=== PATIENT | male | born 1960 | race Caucasian/White ===

== ENCOUNTER → 2016-07-30 | Outpatient (CLI) | payer OTHER ==
--- NOTE | 2016-08-01 23:55 | US ---
EXAMINATION TYPE: US MSK Right Shoulder DATE OF EXAM: 07/30/2016 9:12 AM COMPARISON: None available. CLINICAL HISTORY: 56-year-old male Rt Shoulder Pain M25.511. , popped shoulder stopping a ball . Persistent pain, slight improvement in ROM. Outside radiographs commented on arthritis per the sono grapher. No physical therapy or injections. Can only abduct to shoulder level. TECHNIQUE: Multiple sonographic images of the right shoulder were obtained. FINDINGS: There is mild to moderate fluid seen along the long head biceps tendon at the level of the bicipital groove. Long head biceps tendon appears grossly intact. There is preservation of the subscapularis tendon volume with mild heterogeneity suggesting mild tend inosis. Mild degenerative joint space narrowing with marginal spurring and capsular hypertrophy at the acromi oclavicular joint. The anterior supraspinatus tendon is heterogeneous and irregular with suggestion of a deep tear of th e far anterior fibers contacting the rotator cuff interval measuring up to 9 mm long and 8 mm AP dime nsion with fluid delaminating medially to the myotendinous junction. Abnormal echogenicity appears to contact both bursal and articular surfaces on the short axis views. Views of the posterior shoulder show normal-appearing posterior labrum without significant joint flui d in the posterior recess of the glenohumeral joint. Spinal glenoid groove appears clear. There is preserved muscle bulk of the supraspinatus and infraspinatus muscle bellies. No significant fluid distention of the subacromial/subdeltoid bursa. IMPRESSION: 1. High-grade partial, possible nondisplaced full-thickness tear of the far anterior supraspinatus te ndon contacting the rotator cuff interval measuring 9 mm long and 8 mm AP dimension. Some fluid is se en delaminating medially to the myotendinous junction. 2. No rotator cuff muscle atrophy. 3. Mild AC joint osteoarthrosis and mild long head biceps tenosynovitis.
== END | disposition home or self-care (01) ==
LOC: RADUSMAIN 07:53
PROVIDERS: ATTEND Orthopaedic Surgery
DX: M19.011 Primary osteoarthritis, right shoulder (principal); M75.21 Bicipital tendinitis, right shoulder

== ENCOUNTER 2018-12-04 19:15 | Observation (INO) | payer BC ==
--- NOTE | 2018-12-04 19:46 | ED ---
General Adult HPI - General Chief complaint: Arrhythmia/Palpitations Stated complaint: High Heart Rate Time Seen by Provider: 12/04/18 19:15 Source: patient, RN notes reviewed Mode of arrival: ambulatory Limitations: no limitations - History of Present Illness Initial comments: This is a 58-year-old male who presents emergency Department complaining of palpitations. Patient states he had a history of atrial fibrillation over 20 years ago. Patient states hasn't really had any episodes since. Patient states today he had an episode earlier and eventually subsided once he relaxes at all. Patient states he got up again it started again. Patient states it has been ongoing until he reached the emergency department at which point time he said the stretcher relaxed and eventually converted himself. Patient denies any chest pain difficulty breathing or shortness of breath per patient states he is lightheaded when these episodes occur. Patient denies any recent trips or travel. Patient denies any calf pain. Patient denies any swelling to the legs. Patient denies any recent fever chills or cough. Patient denies any recent surgery. - Related Data Home Medications Medication Instructions Recorded Confirmed Aspirin EC [Ecotrin Low Dose] 81 mg PO HS 12/04/18 12/04/18 Atorvastatin Calcium [Lipitor] 10 mg PO HS 12/04/18 12/04/18 Cyanocobalamin [Vitamin B-12] 500 mcg PO DAILY 12/04/18 12/04/18 Lansoprazole [Prevacid] 30 mg PO DAILY 12/04/18 12/04/18 Losartan [Cozaar] 25 mg PO HS 12/04/18 12/04/18 Multivitamins, Thera [Multivitamin 1 tab PO DAILY 12/04/18 12/04/18 (formulary)] Ubidecarenone [Co Q-10] 100 mg PO DAILY 12/04/18 12/04/18 Allergies Allergy/AdvReac Type Severity Reaction Status Date / Time No Known Allergies Allergy Verified 12/04/18 19:46 Review of Systems ROS Statement: Those systems with pertinent positive or pertinent negative responses have been documented in the HPI. ROS Other: All systems not noted in ROS Statement are negative. Past Medical History Past Medical History: Atrial Fibrillation, GERD/Reflux, Hyperlipidemia, Hypertension History of Any Multi-Drug Resistant Organisms: None Reported Past Surgical History: Ablation, Hernia Repair, Orthopedic Surgery Additional Past Surgical History / Comment(s): shoulder Past Psychological History: No Psychological Hx Reported Smoking Status: Never smoker Past Alcohol Use History: None Reported Past Drug Use History: None Reported General Exam - General Exam Comments Initial Comments: GENERAL: Patient is well-developed and well-nourished. Patient is nontoxic and well- hydrated and is in mild distress. ENT: Neck is soft and supple. No significant lymphadenopathy is noted. Oropharynx is clear. Moist mucous membranes. Neck has full range of motion without eliciting any pain. EYES: The sclera were anicteric and conjunctiva were pink and moist. Extraocular movements were intact and pupils were equal round and reactive to light. Eyelids were unremarkable. PULMONARY: Unlabored respirations. Good breath sounds bilaterally. No audible rales rhonchi or wheezing was noted. CARDIOVASCULAR: There is a regular rate and rhythm without any murmurs gallops or rubs. ABDOMEN: Soft and nontender with normal bowel sounds. No palpable organomegaly was noted. There is no palpable pulsatile mass. SKIN: Skin is clear with no lesions or rashes and otherwise unremarkable. NEUROLOGIC: Patient is alert and oriented x3. Cranial nerves II through XII are grossly intact. Motor and sensory are also intact. Normal speech, volume and content. Symmetrical smile. MUSCULOSKELETAL: Normal extremities with adequate strength and full range of motion. No lower extremity swelling or edema. No calf tenderness. LYMPHATICS: No significant lymphadenopathy is noted PSYCHIATRIC: Normal psychiatric evaluation. 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 Patient's EKG shows no ST segment elevation or depression or T wave abnormalities are noted. Was patient relaxed his heart rate started to slow and then he converted to a normal sinus rhythm. Second EKG was showed a normal sinus rhythm at 85 bpm TX interval is on a 74 QRS is 86 Q-T intervals 366 QTC is 435 per patient's EKG shows no ST segment elevation or depression no T-wave abnormalities are noted. Patient currently has no symptoms. I started the patient on heparin because the paroxysmal atrial fibrillation. I spoke with Dr. Church agreed to admit the patient admitted the patient wrote admitting orders I consult cardiology. I continue the heparin on the floor. - Lab Data Result diagrams: 12/04/18 19:45 Lab Results 12/04/18 12/04/18 12/04/18 Range/Units 19:45 19:45 19:45 PT 10.3 (9.0-12.0) sec INR 1.0 (<1.2) APTT 23.4 (22.0-30.0) sec Sodium 139 (137-145) mmol/L Potassium 3.8 (3.5-5.1) mmol/L Chloride 107 (98-107) mmol/L Carbon Dioxide 24 (22-30) mmol/L Anion Gap 8 mmol/L BUN 29 H (9-20) mg/dL Creatinine 1.13 (0.66-1.25) mg/dL Est GFR (CKD-EPI)AfAm 82 (>60 ml/min/1.73 sqM) Est GFR (CKD-EPI)NonAf 71 (>60 ml/min/1.73 sqM) Glucose 92 (74-99) mg/dL Calcium 9.5 (8.4-10.2) mg/dL Magnesium 1.9 (1.6-2.3) mg/dL Total Bilirubin 0.6 (0.2-1.3) mg/dL AST 37 (17-59) U/L ALT 34 (21-72) U/L Alkaline Phosphatase 75 (38-126) U/L Troponin I <0.012 (0.000-0.034) ng/mL Total Protein 7.3 (6.3-8.2) g/dL Albumin 4.5 (3.5-5.0) g/dL Disposition Clinical Impression: Paroxysmal atrial fibrillation Disposition: ADMITTED IP TO THIS HOSP Referrals: Jerzy Mars MD [Primary Care Provider] - 1-2 days Time of Disposition: 20:32
[2018-12-04] MEDS ORDERED: HEPARIN SODIUM,PORCINE 5,000 UNIT/ML 1 ML VIAL IV ONE (19:57)
[2018-12-04] MEDS ORDERED: HEPARIN SOD,PORK IN 0.45% NACL 25,000 UNIT in 0.45% NACL 1 250ML.BAG IV SCH (20:00)
[2018-12-04 20:11] LABS: Basophils % (A) 0 %; Eosinophils # (A) 0.1 k/uL (0-0.7); Eosinophils % (A) 2 %; HCT 48.2 % (39.0-53.0); HGB 15.9 gm/dL (13.0-17.5); Lymphocytes # (A) 2.4 k/uL (1.0-4.8); Lymphocytes % (A) 32 %; MCH 31.6 pg (25.0-35.0); MCHC 32.9 g/dL (31.0-37.0); MCV 95.9 fL (80.0-100.0); Mean Platelet Volume 6.6; Monocytes # (A) 0.6 k/uL (0-1.0); Monocytes % (A) 7 %; Neutrophils # (A) 4.2 k/uL (1.3-7.7); Neutrophils % (A) 56 %; Platelet Count 244 k/uL (150-450); RBC 5.03 m/uL (4.30-5.90); RDW 12.2 % (11.5-15.5); WBC 7.5 k/uL (3.8-10.6)
--- NOTE | 2018-12-04 20:14 | XR ---
EXAMINATION TYPE: XR chest 2V DATE OF EXAM: 12/04/2018 COMPARISON: NONE HISTORY: Chest pain TECHNIQUE: Frontal and lateral views of the chest are obtained. FINDINGS: Heart and mediastinum are normal. Lungs are clear. Diaphragm is normal. There are chest le ads. There is a left axillary pacemaker. IMPRESSION: No active cardiopulmonary disease. Normal heart.
[2018-12-04 20:20] LABS: Albumin 4.5 g/dL (3.5-5.0); Calcium 9.5 mg/dL (8.4-10.2); Magnesium 1.9 mg/dL (1.6-2.3); Potassium 3.8 mmol/L (3.5-5.1); Total Bilirubin 0.6 mg/dL (0.2-1.3); Total Protein 7.3 g/dL (6.3-8.2)
[2018-12-04 20:27] LABS: Partial Thromboplastin Time 23.4 sec (22.0-30.0); Prothrombin Time 10.3 sec (9.0-12.0)
[2018-12-04] MEDS ORDERED: SODIUM CHLORIDE 0.9% 1,000 ML IV ONE (20:33)
[2018-12-04] MEDS ORDERED: ATORVASTATIN 10 MG TAB PO SCH (21:00)
[2018-12-04] MEDS: DILTIAZEM ORAL 60 MG TAB PO SCH (22:52)
[2018-12-04] MEDS ORDERED: LOSARTAN 25 MG TAB PO STA ×2 (23:11→23:37)
[2018-12-05] MEDS ORDERED: PANTOPRAZOLE 40 MG TABLET PO SCH (08:00)
--- NOTE | 2018-12-05 09:35 | P.HPIM ---
History of Present Illness H&P Date: 12/05/18 Chief Complaint: Palpitations This is a 58-year-old male patient of Dr. Mars and Dr. Karimi with past history of gastroesophageal reflux disease, hypertension, hyperlipidemia. Patient also has history of proximal atrial fibrillation status post ablation of the [facility] in 1996 and subsequent pacemaker placement but no battery change. Pacemaker was on demand setting at 35 and eventually was shot on. Patient states he has had some episodes of palpitations that he feels in his Jus's apple that may last about 10 seconds but yesterday was a first-time that he had any episodes last. He was coaching softball and episode of Lantus 25-30 seconds which went away and then a second episode that lasts for about an hour did result in the emergency center. He denies palpitations, patient also has lightheadedness. He denies any shortness of breath. No history of strokes, numbness or tingling, visual changes. No history of NH. Also no long history and no cancer history. The patient last saw Dr. Mars and Dr. Karimi approximately one year ago. relates that he has not been feeling well for some time. He states his blood pressures usually under control with losartan. Patient presented to [facility] emergency center for evaluation. Initially was found to have a heart rate of 150 and then patient converted and repeat heart rates were in the 50s and 60s, sinus rhythm. EKG was a sinus rhythm at a rate of 85. CBC was within normal limits. Electrolytes and liver function tests within normal limits. BUN 29 and creatinine 1.13. Troponin negative. Chest x-ray shows no acute cardiopulmonary disease. Normal heart. The patient was started on heparin drip and Cardizem drip and has remained in sinus rhythm with T-wave inversion in lead 3.. Patient refused to take Cardizem oral as he states that he has trouble with medications and has reactions to many in the past. Patient was placed in the cardiac stepdown unit and cardiology consult requested. Patient has evaluated the patient and recommended starting eliquis 5 mg daily and flecainide 75 mg twice daily with follow-up with Dr. Kairmi in one week. All other home medications will remain the same. Patient will be discharged home today and states table condition. Review of Systems All systems: negative Constitutional: Denies chills, Denies fatigue, Denies fever, Denies lethargy, De nies malaise, Denies poor appetite (Aortitis), Denies weakness, Denies weight loss Eyes: denies blurred vision, denies pain Ears, nose, mouth and throat: Denies headache, Denies sore throat, Denies vertigo Cardiovascular: Reports irregular heart beat, Reports lightheadedness, Reports palpitations, Denies chest pain, Denies decreased exercise tolerance, Denies dyspnea on exertion, Denies edema, Denies leg edema, Denies shortness of breath, Denies syncope Respiratory: Denies cough, Denies cough with sputum, Denies dyspnea, Denies home oxygen, Denies wheezing Gastrointestinal: Denies abdominal pain, Denies diarrhea, Denies loss of appetite, Denies nausea, Denies vomiting Genitourinary: Denies dysuria, Denies urinary retention Musculoskeletal: Denies frequent falls, Denies gait dysfunction, Denies muscle weakness, Denies myalgias Integumentary: Denies pruritus, Denies rash, Denies wounds Neurological: Denies aphasia, Denies change in mentation, Denies change in spe ech, Denies numbness, Denies seizures, Denies weakness Psychiatric: Denies anxiety, Denies depression Endocrine: Denies fatigue, Denies weight change Past Medical History Past Medical History: Atrial Fibrillation, GERD/Reflux, Hyperlipidemia, Hypertension History of Any Multi-Drug Resistant Organisms: None Reported Past Surgical History: Ablation, Hernia Repair, Orthopedic Surgery Additional Past Surgical History / Comment(s): shoulder, Pacemaker Past Psychological History: No Psychological Hx Reported Smoking Status: Never smoker Past Alcohol Use History: None Reported Additional Past Alcohol Use History / Comment(s): The patient is a lifelong nonsmoker. No illicit drug use. He drinks alcohol rarely. Patient was at home with his . Past Drug Use History: None Reported - Past Family History Father Family Medical History: Hypertension Additional Family Medical History / Comment(s): Father is alive at age 90 with previous history of coronary artery disease with 3 vessel CABG done in his early 60s and valve replacement done at age 82. Mother Additional Family Medical History / Comment(s): Mother at age 73 from metastatic skin cancer. She also had history of diabetes. Brother(s) Additional Family Medical History / Comment(s): Patient has one brother with history of hypertension. Patient has one sister with history of hypertension and diabetes. Patient has 4 children with no major medical problems. Medications and Allergies Home Medications Medication Instructions Recorded Confirmed Type Aspirin EC [Ecotrin Low Dose] 81 mg PO HS 12/04/18 12/04/18 History Atorvastatin Calcium [Lipitor] 10 mg PO HS 12/04/18 12/04/18 History Cyanocobalamin [Vitamin B-12] 500 mcg PO DAILY 12/04/18 12/04/18 History Lansoprazole [Prevacid] 30 mg PO DAILY 12/04/18 12/04/18 History Losartan [Cozaar] 25 mg PO HS 12/04/18 12/04/18 History Multivitamins, Thera [Multivitamin 1 tab PO DAILY 12/04/18 12/04/18 History (formulary)] Ubidecarenone [Co Q-10] 100 mg PO DAILY 12/04/18 12/04/18 History Apixaban [Eliquis] 5 mg PO BID #60 tab 12/05/18 Rx Flecainide [Tambocor] 75 mg PO BID #90 tablet 12/05/18 Rx Allergies Allergy/AdvReac Type Severity Reaction Status Date / Time No Known Allergies Allergy Verified 12/04/18 19:46 Physical Exam Vitals: Vital Signs Temp Pulse Pulse Resp BP BP Pulse Ox 12/05/18 04:00 55 L 17 12/05/18 01:26 97.8 F 67 16 117/64 98 12/05/18 01:08 67 16 111/69 98 12/05/18 00:00 97.8 F 58 L 17 110/62 97 12/04/18 23:00 61 18 118/79 99 12/04/18 22:20 63 19 119/76 12/04/18 21:00 97.9 F 56 L 17 109/67 98 12/04/18 19:20 156 H 12/04/18 19:16 98.1 F 61 15 111/68 97 Intake and Output 12/04/18 12/05/18 12/05/18 22:59 06:59 14:59 Intake Total 82.708 Balance 82.708 Intake: Intake, IV Titration 82.708 Amount Heparin Sod,Pork in 0.45% 82.708 NaCl 25,000 unit In 0.45 % NaCl 1 250ml.bag @ 8.65 UNITS/KG/HR 10.005 mls/ hr IV .Q24H [facility] Rx#: [id number] Other: Voiding Method Urinal # Voids 1 1 Weight 115.666 kg 112.3 kg Gen: This is a 58-year-old male. He is resting in bed and appears to be comfortable and in no acute distress. Patient's is at bedside. HEENT: Head is atraumatic, normocephalic. Pupils equal, round. Sclerae is anicteric. NECK: Supple. No JVD. No lymphadenopathy. No thyromegaly. LUNGS: Clear to auscultation. No wheezes or rhonchi. No intercostal retractions. HEART: Regular rate and rhythm. No murmur. ABDOMEN: Soft. Bowel sounds are present. No masses. No tenderness. EXTREMITIES: No pedal edema. No calf tenderness. Dorsalis pedis +2 bilaterally. NEUROLOGICAL: Patient is awake, alert and oriented x3. Cranial nerves 2 through 12 are grossly intact. Results CBC & Chem 7: 12/04/18 19:45 12/04/18 19:45 Labs: Abnormal Lab Results - Last 24 Hours (Table) 12/04/18 12/05/18 Range/Units 19:45 03:23 APTT 35.7 H (22.0-30.0) sec BUN 29 H (9-20) mg/dL Thrombosis Risk Factor Assmnt - DVT/VTE Prophylaxis DVT/VTE Prophylaxis: Pharmacologic Prophylaxis ordered - Choose All That Apply Each Factor Represents 1 point: Age 41-60 years, Obesity (BMI >25) Other Risk Factors: No Thrombosis Risk Factor Assessment Total Risk Factor Score: 2 Thrombosis Risk Factor Assessment Level: Low Risk Assessment and Plan Plan: 1. A. fib with RVR, converted to sinus rhythm. Cardiology consult. 2. History of atrial fibrillation status post ablation in 1996 and pacemaker placementnot active with no battery change. 3. Hypertension. 4. Hyperlipidemia. 5. Gastroesophageal reflux disease. Patient placed as an observation status. Discharge plan: return home Impression and plan of care have been directed as dictated by the signing physician. Mary Lou Sosa nurse practitioner acting as scribe for signing kaleb lucas.
[2018-12-05] MEDS: DILTIAZEM ORAL 60 MG TAB PO SCH ×2 (10:56→12:37)
[2018-12-05 12:14] VITALS: TEMP 97.8
[2018-12-05] MEDS ORDERED: FLECAINIDE 50 MG TAB PO SCH (14:45)
[2018-12-05 15:58] VITALS: BP 119/69; PULSE 64; RESP 18
--- NOTE | 2018-12-05 16:43 | P.CRDCN ---
History of Present Illness Consult date: 12/05/18 Requesting physician: Maria D Boudreaux Consult reason: atrial fibrillation Chief complaint: Palpitations History of present illness: This is a 58-year-old gentleman who follows regularly with Dr. Karimi in the office. He has a known history of chills fibrillation in the past, for which he underwent an ablation procedure approximately 20 years ago. He presented to the hospital on this occasion with symptoms of palpitations and feeling his heart racing fast. His original EKG in the emergency room showed atrial fibrillation with rapid ventricular response and subsequently patient c onverted to normal sinus rhythm. His current home medications included: Acute 10, multivitamin, Cozaar 25 mg daily, Prevacid 30 mg daily, vitamin B12, Lipitor 10 mg daily, Ecotrin 81 mg daily. We will discontinue the Ecotrin, start the patient on flecainide 75 mg by mouth twice a day if the LV function is normal, and also start the patient on Eliquis 5 mg one tablet by mouth twice a day. He should be able to be discharged home today from our perspective, we'll recommend that he follow-up with Dr. Karimi in the office next week Past Medical History Past Medical History: Atrial Fibrillation, GERD/Reflux, Hyperlipidemia, Hypertension History of Any Multi-Drug Resistant Organisms: None Reported Past Surgical History: Ablation, Hernia Repair, Orthopedic Surgery Additional Past Surgical History / Comment(s): shoulder, Pacemaker Past Psychological History: No Psychological Hx Reported Smoking Status: Never smoker Past Alcohol Use History: None Reported Additional Past Alcohol Use History / Comment(s): The patient is a lifelong nonsmoker. No illicit drug use. He drinks alcohol rarely. Patient was at home with his . Past Drug Use History: None Reported - Past Family History Father Family Medical History: Hypertension Additional Family Medical History / Comment(s): Father is alive at age 90 with previous history of coronary artery disease with 3 vessel CABG done in his early 60s and valve replacement done at age 82. Mother Additional Family Medical History / Comment(s): Mother at age 73 from metastatic skin cancer. She also had history of diabetes. Brother(s) Additional Family Medical History / Comment(s): Patient has one brother with history of hypertension. Patient has one sister with history of hypertension and diabetes. Patient has 4 children with no major medical problems. Medications and Allergies Home Medications Medication Instructions Recorded Confirmed Type Aspirin EC [Ecotrin Low Dose] 81 mg PO HS 12/04/18 12/04/18 History Atorvastatin Calcium [Lipitor] 10 mg PO HS 12/04/18 12/04/18 History Cyanocobalamin [Vitamin B-12] 500 mcg PO DAILY 12/04/18 12/04/18 History Lansoprazole [Prevacid] 30 mg PO DAILY 12/04/18 12/04/18 History Losartan [Cozaar] 25 mg PO HS 12/04/18 12/04/18 History Multivitamins, Thera [Multivitamin 1 tab PO DAILY 12/04/18 12/04/18 History (formulary)] Ubidecarenone [Co Q-10] 100 mg PO DAILY 12/04/18 12/04/18 History Apixaban [Eliquis] 5 mg PO BID #60 tab 12/05/18 Rx Flecainide [Tambocor] 75 mg PO BID #90 tablet 12/05/18 Rx Allergies Allergy/AdvReac Type Severity Reaction Status Date / Time No Known Allergies Allergy Verified 12/04/18 19:46 Physical Exam Vitals: Vital Signs Temp Pulse Pulse Resp BP BP Pulse Ox 12/05/18 12:00 97.8 F 58 L 16 126/79 95 12/05/18 08:00 97.4 F L 57 L 18 112/72 95 12/05/18 04:00 55 L 17 12/05/18 01:26 97.8 F 67 16 117/64 98 12/05/18 01:08 67 16 111/69 98 12/05/18 00:00 97.8 F 58 L 17 110/62 97 12/04/18 23:00 61 18 118/79 99 12/04/18 22:20 63 19 119/76 12/04/18 21:00 97.9 F 56 L 17 109/67 98 12/04/18 19:20 156 H 12/04/18 19:16 98.1 F 61 15 111/68 97 Intake and Output 12/04/18 12/05/18 12/05/18 22:59 06:59 14:59 Intake Total 82.708 342.193 Balance 82.708 342.193 Intake: Intake, IV Titration 82.708 102.193 Amount Heparin Sod,Pork in 0.45% 82.708 102.193 NaCl 25,000 unit In 0.45 % NaCl 1 250ml.bag @ 8.65 UNITS/KG/HR 10.005 mls/ hr IV .Q24H [facility] Rx#: [id number] Oral 240 Other: Voiding Method Urinal Toilet # Voids 1 1 Weight 115.666 kg 112.3 kg PHYSICAL EXAMINATION: GENERAL: 58-year-old gentleman in no acute distress at the time of my examination HEENT: Head is atraumatic, normocephalic. Pupils equal, round. Sclera anicteric. Conjunctiva are clear. Mucous membranes of the mouth are moist. Neck is supple. There is no elevated jugular venous pressure. No carotid bruit is heard. HEART EXAMINATION: Heart S1, S2 normal. No murmur or gallop heard. CHEST EXAMINATION: Lungs are clear to auscultation and precussion. No chest wall tenderness is noted on palpation or with deep breathing. ABDOMEN: Soft, nontender. Bowel sounds are heard. No organomegaly noted. EXTREMITIES: 2+ peripheral pulses with no evidence of peripheral edema and no calf tenderness noted. NEUROLOGIC patient is awake, alert and oriented 3 . . Results 12/04/18 19:45 12/04/18 19:45 Cardiac Enzymes 12/04/18 12/04/18 Range/Units 19:45 19:45 AST 37 (17-59) U/L Troponin I <0.012 (0.000-0.034) ng/mL Coagulation 12/04/18 12/05/18 12/05/18 Range/Units 19:45 03:23 11:38 PT 10.3 (9.0-12.0) sec APTT 23.4 35.7 H 46.3 H (22.0-30.0) sec CBC 12/04/18 Range/Units 19:45 WBC 7.5 (3.8-10.6) k/uL RBC 5.03 (4.30-5.90) m/uL Hgb 15.9 (13.0-17.5) gm/dL Hct 48.2 (39.0-53.0) % Plt Count 244 (150-450) k/uL Comprehensive Metabolic Panel 12/04/18 Range/Units 19:45 Sodium 139 (137-145) mmol/L Potassium 3.8 (3.5-5.1) mmol/L Chloride 107 (98-107) mmol/L Carbon Dioxide 24 (22-30) mmol/L BUN 29 H (9-20) mg/dL Creatinine 1.13 (0.66-1.25) mg/dL Glucose 92 (74-99) mg/dL Calcium 9.5 (8.4-10.2) mg/dL AST 37 (17-59) U/L ALT 34 (21-72) U/L Alkaline Phosphatase 75 (38-126) U/L Total Protein 7.3 (6.3-8.2) g/dL Albumin 4.5 (3.5-5.0) g/dL Current Medications Generic Name Dose Route Start Last Admin Trade Name Freq PRN Reason Stop Dose Admin Atorvastatin Calcium 10 mg 12/04/18 21:00 12/04/18 23:51 Lipitor PO 10 mg HS MERY Administration Diltiazem HCl 60 mg 12/04/18 22:00 12/05/18 10:56 Cardizem Oral PO Not Given QID MERY Heparin Sodium/Sodium Chloride 250 mls @ 10.005 mls/hr 12/04/18 20:00 12/05/18 12:22 25,000 unit/ Sodium Chloride IV 13.6 units/kg/hr .Q24H [facility] 15.731 mls/hr Titration Protocol 8.65 UNITS/KG/HR Pantoprazole Sodium 40 mg 12/05/18 08:00 12/05/18 08:05 Protonix PO 40 mg [id number] MERY Administration Intake and Output 12/04/18 12/05/18 12/05/18 22:59 06:59 14:59 Intake Total 82.708 342.193 Balance 82.708 342.193 Intake: Intake, IV Titration 82.708 102.193 Amount Heparin Sod,Pork in 0.45% 82.708 102.193 NaCl 25,000 unit In 0.45 % NaCl 1 250ml.bag @ 8.65 UNITS/KG/HR 10.005 mls/ hr IV .Q24H [facility] Rx#: [id number] Oral 240 Other: Voiding Method Urinal Toilet # Voids 1 1 Weight 115.666 kg 112.3 kg 12/04/18 19:45 12/04/18 19:45 EKG Interpretations (text) EKG on admission showed atrial fibrillation with rapid ventricular response, subsequent EKG shows normal sinus rhythm with no acute changes. Assessment and Plan Plan: Assessment and plan #1 paroxysmal atrial fibrillation #2 hypertension #3 hyperlipidemia Plan We will start the patient on flecainide 75 mg one tablet by mouth twice a day along with Eliquis 5 mg one tablet by mouth twice a day. Discontinue the aspirin he was taking at home and continue with the rest of his medications. Follow-up appointment with Dr. Karimi in the office one week post discharge. DNP note has been reviewed, I agree with a documented findings and plan of care. Patient was seen and examined.
[2018-12-05] MEDS ORDERED: APIXABAN 5 MG TAB PO SCH (21:00)
--- NOTE | 2018-12-06 16:17 | ECHOF ---
Referral Reason:LVF MEASUREMENTS -------- HEIGHT: 188.0 cm WEIGHT: 112.0 kg BP: RVIDd: 4.4 cm (< 3.3) IVSd: 1.6 cm (0.6 - 1.1) LVIDd: 4.3 cm (3.9 - 5.3) LVPWd: 1.4 cm (0.6 - 1.1) IVSs: 2.1 cm LVIDs: 2.8 cm LVPWs: 1.7 cm LAESV Index (A-L): 17.65 ml/m Ao Diam: 3.9 cm (2.0 - 3.7) AV Cusp: 2.1 cm (1.5 - 2.6) LA Diam: 3.9 cm (2.7 - 3.8) MV EXCURSION: 18.655 mm (> 18.000) MV EF SLOPE: 101 mm/s (70 - 150) EPSS: 0.3 cm MV E [place]: 0.59 m/s MV DecT: 193 ms MV A [place]: 0.45 m/s MV E/A Ratio: 1.32 AR PHT: 947 ms RAP: 5.00 mmHg RVSP: 27.57 mmHg FINDINGS -------- Sinus rhythm. This was a technically adequate study. The left ventricular size is normal. There is moderate concentric left ventricular hypertrophy. O verall left ventricular systolic function is normal with, an EF between 55 - 60 %. The right ventricle is severely enlarged. The left atrial size is normal. Normal LA size by volume 22+/-6 ml/m2. The right atrial size is normal. Interatrial and interventricular septum intact. The aortic valve is trileaflet and appears structurally normal. Mild mitral regurgitation is present. Mild tricuspid regurgitation present. There is no evidence of pulmonary hypertension. The right v entricular systolic pressure, as measured by Doppler, is 27.57mmHg. Trace/mild (physiologic) pulmonic regurgitation. The aortic root size is normal. IVC Not well visulized. There is no pericardial effusion. CONCLUSIONS -------- 1. Sinus rhythm. 2. This was a technically adequate study. 3. The left ventricular size is normal. 4. There is moderate concentric left ventricular hypertrophy. 5. Overall left ventricular systolic function is normal with, an EF between 55 - 60 %. 6. The right ventricle is severely enlarged. 7. The left atrial size is normal. 8. Normal LA size by volume 22+/-6 ml/m2. 9. The right atrial size is normal. 10. Interatrial and interventricular septum intact. 11. The aortic valve is trileaflet and appears structurally normal. 12. Mild mitral regurgitation is present. 13. Mild tricuspid regurgitation present. 14. There is no evidence of pulmonary hypertension. 15. The right ventricular systolic pressure, as measured by Doppler, is 27.57mmHg. 16. Trace/mild (physiologic) pulmonic regurgitation. 17. The aortic root size is normal. 18. IVC Not well visulized. 19. There is no pericardial effusion. [employer] MECHANIC: Marilia Davalos RDCS
== END 2018-12-05 17:26 | disposition home or self-care (01) ==
LOC: EC 19:15 → 3SCARD 20:33
PROVIDERS: ADMIT Internal Medicine; ATTEND Internal Medicine
DX: I48.0 Paroxysmal atrial fibrillation (principal); K21.9 Gastro-esophageal reflux disease without esophagitis; I10 Essential (primary) hypertension; E78.5 Hyperlipidemia, unspecified; Z95.0 Presence of cardiac pacemaker; Z79.01 Long term (current) use of anticoagulants; Z79.82 Long term (current) use of aspirin; Z79.899 Other long term (current) drug therapy; Z80.8 Family history of malignant neoplasm of other organs or systems; Z83.3 Family history of diabetes mellitus; Z82.49 Family history of ischemic heart disease and other diseases of the circulatory system
CPT/HCPCS: 96366 ×3; 96365; 99285; 36415; 93005; 93306; 80053; 84443; 83735; 84484; 85025; 85610; 85730 ×2; 71046; G0378 ×2; J1644 ×2

== ENCOUNTER → 2019-08-16 | Outpatient (CLI) | payer BC ==
--- NOTE | 2019-08-16 22:30 | CONS ---
CONSULTATION DATE OF SERVICE: 08/16/2019 This patient is a 59-year-old gentleman who has been evaluated in the sleep center for possible obstructive sleep apnea-hypopnea syndrome. HISTORY OF PRESENT ILLNESS/SLEEP-WAKE EVALUATION: Patient's usual sleep schedule on weekdays is from 8:30 p.m. until 5 a.m. and on weekends from around 9 p.m. until 5 a.m. No problems with falling asleep, although he has a TV set in the bedroom. He usually sleeps on the side position with his . He grinds his teeth. He has episodes of heartburn and wakes up from sleep two times with nocturia. In the morning he wakes up tired. [place] Sleepiness Scale is 9. PAST MEDICAL HISTORY: Positive for episodes of paroxysmal atrial fibrillation for around 20 years, hypertension, hyperlipidemia. PAST SURGICAL HISTORY: Cardiac ablation, pacemaker insertion, cholecystectomy, right shoulder surgery for rotator cuff problems, hernia repair. MEDICATIONS: Lansoprazole, flecainide, Eliquis, losartan, atorvastatin. SOCIAL HISTORY: Negative for smoking. Alcohol consumption rarely. FAMILY HISTORY: Hypertension, heart problems, hyperlipidemia, acid reflux, diabetes. REVIEW OF SYSTEMS: Awakenings from sleep, feeling tired in the morning after he wakes up. PHYSICAL EXAMINATION: GENERAL: A pleasant gentleman without distress. VITAL SIGNS: BP 127/84, HR 72, RR 14, height 6 feet 2 inches, weight 265 pounds. Body mass index 34. Temperature 98.2, oxygen saturation at room air 96%. HEENT: PERRLA, EOMI. Evaluation of oropharynx showed tongue protrudes midline. Mallampati II to III. Nose asymmetric. NECK: Supple. No JVD. Thyroid is not palpable. Wide neck; 17-1/4 inches in circumference. LUNGS: Clear to percussion and to auscultation. Good air exchange. No wheezing or rhonchi. HEART: S1, S2 regular. No murmurs, gallops or rubs. ABDOMEN: Soft. No tenderness. EXTREMITIES: No clubbing or cyanosis. [employer]: Awake, alert, and oriented X3. Cranial nerves 2 to 7 intact. There is no fasciculation or atrophy. noted. No focal deficits observed. IMPRESSION: 1. Awakenings from sleep with nocturia several times at night, wide neck at 17-1/4 inches in circumference, nose asymmetric, some restriction of nasal breathing, feeling tiredness and sleepiness in the morning after awakening; possible obstructive sleep apnea-hypopnea syndrome. 2. History of paroxysmal atrial fibrillation for about 20 years. 3. Hypertension. 4. Hyperlipidemia. 5. Status post permanent pacemaker insertion. 6. Status post cardiac ablation. 7. Status post cholecystectomy. 8. Status post right shoulder surgery for rotator cuff problems. 9. Status post hernia repair. 10.Asymmetric nose; possibly nasal septum deviation. PLAN: 1. Home sleep apnea test to check patient's breathing during sleep. 2. CPAP/BiPAP titration if sleep study confirms obstructive sleep apnea-hypopnea syndrome. 3. Preferable position during sleep on the side. 4. No driving if patient feels any sleepiness. 5. I will see patient for follow up visit to explain results of testing and following plan. Thank you very much for referring this patient for consultation. Sincerely, Zev Agustin MD, PhD, FAASM Diplomat of [place] [employer] [place] [employer] Supervisor of [facility] [place] MMODL / IJN: [id number] /
== END | disposition home or self-care (01) ==
LOC: SLEEP 15:53
PROVIDERS: ATTEND Internal Medicine
DX: G47.33 Obstructive sleep apnea (adult) (pediatric) (principal); I10 Essential (primary) hypertension; E78.5 Hyperlipidemia, unspecified; Z86.79 Personal history of other diseases of the circulatory system; Z90.49 Acquired absence of other specified parts of digestive tract; Z95.0 Presence of cardiac pacemaker; Z98.890 Other specified postprocedural states; R35.1 Nocturia; Z79.01 Long term (current) use of anticoagulants; Z79.899 Other long term (current) drug therapy
CPT/HCPCS: 99211

== ENCOUNTER → 2020-01-23 | Outpatient (CLI) | payer BC ==
[2020-01-23 11:14] LABS: MCH 32.4 pg (25.0-35.0); MCV 101.1 fL (80.0-100.0); Mean Platelet Volume 7.3; Platelet Count 225 k/uL (150-450); RBC 4.94 m/uL (4.30-5.90); RDW 12.3 % (11.5-15.5)
[2020-01-23 16:45] LABS: African American GFR (CKD) 93.7 (60.0-200.0); Anion Gap 5.4 mmol/L (4.00-12.00); Carbon Dioxide 25.6 mmol/L (21.6-31.8); Chol/HDL Ratio 2.88; LDL Cholesterol,Calculated 63.8 mg/dL (0.0-131.0); Non-African American GFR(CKD) 80.9 (60.0-200.0); Potassium 4.4 mmol/L (3.5-5.5); VLDL Calculation 13.2 mg/dL (5.00-40.00)
== END | disposition home or self-care (01) ==
LOC: LABWHC1 10:08
PROVIDERS: ATTEND Physician Assistant
DX: I10 Essential (primary) hypertension (principal); E78.5 Hyperlipidemia, unspecified; I48.0 Paroxysmal atrial fibrillation
CPT/HCPCS: 36415; 80048; 80061; 84443; 85027

== ENCOUNTER 2022-09-28 13:07 | Day surgery (SDC) | payer BC ==
[2022-09-23 15:56] VITALS: BMI 33.3
[~2022-09-28 13:07] MED LIST: DEXAMETHASONE SOD PHOSPHATE 4 MG/ML 1 ML VIAL IV ONE; HYDROmorphone 0.5 MG/0.5 ML SYRINGE IVP PRN; ONDANSETRON 4 MG/2 ML VIAL IVP ONE; SODIUM CHLORIDE 0.9% 1,000 ML IV SCH
[2022-09-28] MEDS ORDERED: HEPARIN SODIUM,PORCINE 10,000 UNIT/ML 1 ML VIAL ONE (14:52)
[2022-09-28] MEDS ORDERED: LIDOCAINE 2% INJ 20 MG/ML (2 ML VIAL) ONE (14:52)
[2022-09-28] MEDS ORDERED: SUCCINYLCHOLINE CHLORIDE 200 MG/10 ML VIAL IV ONE (14:52)
[2022-09-28] MEDS ORDERED: ISOPROTERENOL 250 MCG/1.25 ML SYR IV ONE (14:52)
[2022-09-28] MEDS ORDERED: MIDAZOLAM 2 MG/2 ML VIAL ONE (14:52)
[2022-09-28] MEDS ORDERED: fentaNYL (PF) 50 MCG/ML 2 ML AMP ONE (14:52)
[2022-09-28] MEDS ORDERED: PROPOFOL 10 MG/ML 20 ML VIAL IV ONE (14:52)
[2022-09-28] MEDS ORDERED: PHENYLEPHRINE-0.9% NACL SYG 1,000 MCG/10 ML SYRINGE ONE (14:52)
[2022-09-28] MEDS ORDERED: HEPARIN SODIUM,PORCINE 5,000 UNIT/ML 1 ML VIAL ONE (14:52)
[2022-09-28] MEDS ORDERED: LIDOCAINE 1% INJ 10MG/ML (30 ML VIAL-PF) SQ ONE (15:32)
[2022-09-28] MEDS ORDERED: HEPARIN SOD,PORK IN 0.45% NACL 25,000 UNIT in 0.45% NACL 1 250ML.BAG IV ONE (15:50)
[2022-09-28] MEDS ORDERED: IOPAMIDOL-370 100ML BTL INJ ONE (17:26)
[2022-09-28] MEDS ORDERED: LACTATED RINGERS 1,000 ML IV ONE (17:46)
--- NOTE | 2022-09-28 17:53 | P.HPCAR ---
History of Present Illness This is Dr. Karimi dictating an H/P on this patient The patient was interviewed and examined IMPRESSION / ASSESSMENT: Persistent atrial fibrillation of recent onset Failed flecainide, previously treated for paroxysmal A. fib, now persistent despite flecainide Normal TSH History of atrial flutter status post ablation many years back Sick Sinus Syndrome PLAN: A. fib ablation Continue anticoagulation HPI Patient completed palpitations. He also has mild tiredness and fatigue No syncope or loss of consciousness No chest discomfort or angina ROS: No fever chills or rigors, no cough, phlegm or expectoration, no nausea, vomiting or diarrhea, no hematuria, dysuria, no musculoskeletal complaints, no strokes or seizures, no skin lesions. EXAMINATION: 126/80 mmHg Afebrile pulse rate in the 60s Breath sounds are clear no rhonchi no crackles Heart sounds are normal but irregular no murmurs Abdomen soft nontender Extended is warm no edema REVIEW OF LABS, ECG & MEDICAL DATA Losartan, metoprolol, Lipitor, ELIQUIS Physical Exam Vitals: Vital Signs Temp Pulse Resp BP Pulse Ox 09/28/22 13:30 98 F 62 18 126/80 99 Intake and Output 09/28/22 09/28/22 09/28/22 06:59 14:59 22:59 Intake Total 1000 28 Balance 1000 28 Intake: IV 1000 28 Other: Weight 118.4 kg Past Medical History Past Medical History: Atrial Fibrillation, GERD/Reflux, Hyperlipidemia, Hypertension Additional Past Medical History / Comment(s): Pacemaker - non functioning, states "battery ran out and Dr karimi said I didn't need it and just left it there." History of Any Multi-Drug Resistant Organisms: None Reported Past Surgical History: Cardiac Ablation, Hernia Repair, Orthopedic Surgery, Pacemaker Additional Past Surgical History / Comment(s): Shoulder surgery (does not recall which side), cardiac ablation X2, right knee surgery X2. Past Anesthesia/Blood Transfusion Reactions: No Reported Reaction Type of Cardiac Device: Unknown Device Placement Date:: 1996 Past Psychological History: No Psychological Hx Reported Smoking Status: Never smoker Past Alcohol Use History: Rare Additional Past Alcohol Use History / Comment(s): No alcohol use in years. Past Drug Use History: None Reported - Past Family History Father Family Medical History: Coronary Artery Disease (CAD), Hypertension Additional Family Medical History / Comment(s): Father is alive at age 90 with previous history of 3 vessel CABG done in his early 60s and valve replacement done at age 82. Mother Family Medical History: Cancer, Diabetes Mellitus Additional Family Medical History / Comment(s): Mother at age 73 from metastatic skin cancer. Brother(s) Additional Family Medical History / Comment(s): Patient has one brother with history of hypertension. Patient has one sister with history of hypertension and diabetes. Patient has 4 children with no major medical problems. Physical Examination Vital Signs Temp Pulse Resp BP Pulse Ox 09/28/22 13:30 98 F 62 18 126/80 99 Intake and Output 09/28/22 09/28/22 09/28/22 06:59 14:59 22:59 Intake Total 1000 28 Balance 1000 28 Intake: IV 1000 28 Other: Weight 118.4 kg Results Current Medications Generic Name Dose Route Start Last Admin Trade Name Freq PRN Reason Stop Dose Admin Hydromorphone HCl 0.5 mg 09/28/22 07:00 Hydromorphone 0.5 Mg/0.5 Ml Syringe IVP 09/28/22 23:00 Q5M PRN Phase 1 or 2 - Pain Control Sodium Chloride 1,000 mls @ 50 mls/hr 09/28/22 06:02 09/28/22 13:31 Saline 0.9% IV 10/28/22 06:03 1,000 mls .Q20H MERY Administration Lactated Ringer's 1,000 mls @ 20 mls/hr 09/28/22 06:02 Lactated Ringers IV 10/28/22 06:03 .Q24H MERY Intake and Output 09/28/22 09/28/22 09/28/22 06:59 14:59 22:59 Intake Total 1000 28 Balance 1000 28 Intake: IV 1000 28 Other: Weight 118.4 kg Patient Weight 09/29/22 06:59 Weight 118.4 kg
--- NOTE | 2022-09-28 18:03 | P.EPPROC ---
- EP Procedure Note Electrophysiology Procedure Note: PROCEDURE A. fib ablation DIAGNOSIS Atrial fibrillation, symptomatic, refractory to therapy, persistent, of recent onset RESULT No left atrial appendage mass seen on intracardiac echo, thickened pericardium around the left ventricle Calcification of the wall of the left main and LAD/left circumflex without obvious occlusion on intracardiac echo Successful A. fib ablation/pulmonary vein isolation of all veins using cryo- ablation. Termination of atrial fibrillation during RSPV ablation Active left atrial septum, successful left atrial septal ablation Left atrial roof line performed with contiguous lesions performed Alinia band of ablated tissue from the right superior to the left superior pulmonary veins Complete entrance block in all 4 veins confirmed No evidence for phrenic nerve injury Esophageal deflection YES / NO PROCEDURE DETAILS Written informed consent prior to procedure. Patient brought to the EP lab. General anesthesia given. Heparin administered. A city maintained above 300 seconds Both groins prepped and draped per protocol and venous sheaths placed. Es ophagus intubated, circa catheter for temperature monitoring an endoscope for possible esophageal deflection. Phrenic nerve monitoring performed. Esophageal temperature monitoring performed. Esophageal deflection performed if circa catheter overlapping with the balloon or circa temperature less than 27.5C Intracardiac echocardiography performed. Pericardium evaluated. Left atrial appendage evaluated. Left atrium evaluated along with pulmonary veins Transseptal catheterization performed under fluoroscopic guidance and intracardiac echo guidance Cryoablation sheath exchanged, balloon catheter along with achieve catheter placed in the left atrium. Pulmonary veins isolated in the following sequence: Left superior pulmonary vein followed by left inferior pulmonary vein, followed by right inferior pulmonary vein and lastly right superior pulmonary vein. Phrenic nerve stimulation along with capture thresholds within the SVC and right superior pulmonary vein to identify the phrenic nerve proximity to the cryo- balloon. Pulmonary veins isolated and confirmed with entrance and exit block. Phrenic nerve integrity confirmed at the end of the procedure Termination of atrial fibrillation during RSP V Ablation of the left atrial roof performed with sequential lesions from the left superior to the right superior pulmonary veins. Ablation of the electrograms confirmed After right superior and inferior pulmonary vein ablation, a very active julio césar/septum was noted in between the 2 veins and this area was then successfully ablated. Ablation of the left atrial septum performed with cannulation of the superior branch of the right inferior or the inferior branch of the right superior vein to achieve ablation of the posterior septum of the left atrium. Ablation of electrograms confirmed Diagnostic catheters for the high right atrium, His bundle, coronary sinus placed. LA and RA pressures recorded RA pressure: 14/02/11 LA pressure: 15/02/11 Diagnostic EP study with coronary sinus pacing and recording Baseline measurements: Sinus cycle length 990 ms, RI interval 170 ms, QRS 101 ms and QT 420 ms AH 84 and HV 37 ms Parahisian pacing revealed john response VA [place]enckebach block greater than 550 ms Sinus node recovery times at 600, 500 and, 400 were 1194, 1241 and 1201. Corresponding carotid sinus recovery times normal AV node Wenckebach block from the high right atrium was 320 ms AV node Wenckebach block on Isuprel was 230 ms from the coronary sinus Venous sheaths were removed and hemostasis assured with a closure device. Patient extubated and transferred to recovery Increase procedural time During ablation of the right-sided veins, phrenic nerve stimulation was noted within the right-sided veins. The cryo balloon in close proximity to this location, during standard technique for occlusion of the vein, posing a risk to the phrenic nerve. Therefore the balloon was repositioned around the antrum in a roving fashion to isolate the vein at an extra ostial level to minimize the risk of phrenic nerve injury. The right-sided veins were completely and successfully isolated with this extra effort. In addition this is a large vein and the 28th millimeter balloon but still have to be positioned deep in order to achieve occlusion. Termination of atrial fibrillation occurred during right superior pulmonary vein ablation Multiple attempts needed for successful cryoablation isolation of the pulmonary vein, especially the right superior pulmonary vein which is quite large resulting in deep positioned in the balloon and very cold temperatures. Cryo lesions were limited to multiple two-minute lesions for the right superior PROCEDURES PERFORMED Diagnostic EP study CS pacing and recording Left and right transseptal catheterization Catheter the mapping of the tachycardia Intracardiac echocardiography Pulmonary vein isolation with transseptal and comprehensive EPS, [id number] Extended procedure duration Drug infusion, +[id number] Left atrial roof line, +[id number] Linear ablation, left atrium septum, +[id number]
[2022-09-28] MEDS ORDERED: ACETAMINOPHEN TAB 325 MG TAB PO PRN (18:05)
[2022-09-28] MEDS ORDERED: ACETAMINOPHEN IV (For NPO) 1,000 MG in EMPTY BAG 1 BAG IVPB ONE (19:00)
[2022-09-28] MEDS: LACTATED RINGERS 1,000 ML IV SCH ×2 (19:42→20:10)
[2022-09-28] MEDS: APIXABAN 5 MG TAB PO SCH (20:08)
[2022-09-28] MEDS ORDERED: LOSARTAN 25 MG TAB PO SCH (21:00)
[2022-09-29 05:19] VITALS: PULSE 70
[2022-09-29 06:39] LABS: Basophils % (A) 0 %; Eosinophils # (A) 0.1 k/uL (0-0.7); Eosinophils % (A) 1 %; HCT 48.2 % (39.0-53.0); HGB 16.4 gm/dL (13.0-17.5); Lymphocytes # (A) 1.6 k/uL (1.0-4.8); Lymphocytes % (A) 19 %; MCH 33.1 pg (25.0-35.0); MCHC 34.1 g/dL (31.0-37.0); MCV 97.3 fL (80.0-100.0); Mean Platelet Volume 7.5; Monocytes # (A) 0.7 k/uL (0-1.0); Monocytes % (A) 8 %; Neutrophils # (A) 6.1 k/uL (1.3-7.7); Neutrophils % (A) 69 %; Platelet Count 194 k/uL (150-450); RBC 4.95 m/uL (4.30-5.90); RDW 12.7 % (11.5-15.5); WBC 8.8 k/uL (3.8-10.6)
[2022-09-29 06:58] VITALS: BP 103/70; RESP 16; TEMP 98.1
[2022-09-29 07:04] LABS: African American GFR (CKD) >90 (>60 ml/min/1.73 sqM); Anion Gap 8 mmol/L; Blood Urea Nitrogen 21 mg/dL (9-20); Calcium 8.6 mg/dL (8.4-10.2); Carbon Dioxide 23 mmol/L (22-30); Chloride 108 mmol/L (98-107); Glucose 75 mg/dL (74-99); Non-African American GFR(CKD) 85 (>60 ml/min/1.73 sqM); Potassium 4.3 mmol/L (3.5-5.1); Sodium 139 mmol/L (137-145)
[2022-09-29] MEDS ORDERED: ATORVASTATIN 20 MG TAB PO SCH (09:00)
[2022-09-29] MEDS ORDERED: PANTOPRAZOLE 40 MG TABLET PO SCH (09:00)
--- NOTE | 2022-09-29 09:27 | P.DS ---
Providers Attending physician: Jatinder Karimi Primary care physician: Jerzy [facility] Course: The patient is a 62-year-old male who is currently admitted after successful pulmonary vein isolation for persistent atrial fibrillation. The patient underwent pulmonary vein isolation with left atrial roof line. No atrial fibrillation induced the end of his procedure. The patient states he did well overnight. He does report having a sore throat. No chest pain or chest pressure. No orthopnea or chest pain when lying flat. He states he has been up ambulating to the restroom. GENERAL: Well-appearing, well-nourished and in no acute distress. NECK: Supple without JVD or thyromegaly. LUNGS: Breath sounds clear to auscultation bilaterally. Respiration equal and unlabored. No wheezes, rales or rhonchi. HEART: Regular rate and rhythm without murmurs, rubs or gallops. S1 and S2 hear d. EXTREMITIES: Normal range of motion, no edema. No clubbing or cyanosis. Peripheral pulses intact and strong. Bruising noted in bilateral groin sites. Mild. No hematoma. TELEMETRY: Sinus rhythm overnight IMPRESSION: Persistent atrial fibrillation refractory to antiarrhythmic therapy Status post pulmonary vein isolation A. fib terminated at the left superior pulmonary vein PLAN: Continue current medication regimen including anticoagulation Follow-up in office in 1-2 weeks I am dictating on behalf of Dr Jatinder Karimi's history/physical and assessment/plan. Plan - Discharge Summary Discharge Rx Participant: Yes New Discharge Prescriptions: Discontinued Flecainide [Tambocor] 50 mg PO BID Metoprolol Succinate [Toprol XL] 50 mg PO DAILY No Action Losartan [Cozaar] 25 mg PO HS Lansoprazole [Prevacid] 30 mg PO DAILY Apixaban [Eliquis] 5 mg PO BID #60 tab Atorvastatin [Lipitor] 20 mg PO DAILY Discharge Medication List Lansoprazole [Prevacid] 30 mg PO DAILY 12/04/18 [History] Losartan [Cozaar] 25 mg PO HS 12/04/18 [History] Apixaban [Eliquis] 5 mg PO BID #60 tab 12/05/18 [Rx] Atorvastatin [Lipitor] 20 mg PO DAILY 09/23/22 [History] Follow up Appointment(s)/Referral(s): Jatinder Karimi MD [STAFF PHYSICIAN] - 2 Weeks (Follow-up with Dr. Karimi/Alice Perales in 1-2 weeks Start flecainide and metoprolol Continue ELIQUIS and other cardiac medications) Activity/Diet/Wound Care/Special Instructions: Post EP study - Ablation instructions 1. Keep access sites dry for 2 days. 2. No heavy lifting or straining for 2 days. 3. Avoid bending the hips repeatedly for 2 days. 4. You may go up and down stairs slowly Call if the following is noted 1. Bleeding, increasing swelling or pain at the access sites. 2. Increasing chest discomfort, especially upon taking a deep breath. 3. Increasing shortness of breath, at rest or with exertion. 4. Undue cough / phlegm 5. Difficulty or pain while swallowing. 6. Pain or change in color in the extremities. 7. Fever, chills, rigors. 8. Increasing headache or neurologic symptoms. 9. Dizziness, fainting, palpitations Stop flecainide Stop metoprolol Continue ELIQUIS Continue losartan Continue atorvastatin Discharge Disposition: HOME SELF-CARE
[2022-09-29] MEDS: APIXABAN 5 MG TAB PO SCH (09:32)
== END 2022-09-29 13:40 | disposition home or self-care (01) ==
LOC: CATHEP 13:07 → 6NMEDSUR 17:40 → CATHEP 09-29 13:40
PROVIDERS: ATTEND Internal Medicine Clinical Cardiac Electrophysiology
DX: I48.19 Other persistent atrial fibrillation (principal); I48.92 Unspecified atrial flutter; I49.5 Sick sinus syndrome; I25.10 Atherosclerotic heart disease of native coronary artery without angina pectoris; I44.1 Atrioventricular block, second degree; Z79.01 Long term (current) use of anticoagulants; Z98.890 Other specified postprocedural states; Z79.899 Other long term (current) drug therapy; E78.5 Hyperlipidemia, unspecified; K21.9 Gastro-esophageal reflux disease without esophagitis; I10 Essential (primary) hypertension; Z95.0 Presence of cardiac pacemaker; F10.20 Alcohol dependence, uncomplicated; Z82.49 Family history of ischemic heart disease and other diseases of the circulatory system; Z83.3 Family history of diabetes mellitus; Z80.8 Family history of malignant neoplasm of other organs or systems; I49.2 Junctional premature depolarization
CPT/HCPCS: 93656; 93657; 93623; 80048; 85025; C1894 ×2; C1769 ×4; C1760; C1730 ×2; C1759; C1893; C1733; C1766; J2250; J0330; J1644 ×3; J2001 ×2; J3010; J0131; J2370; J2704; Q9967

== ENCOUNTER 2022-10-03 12:59 | Observation (INO) | payer BC ==
[2022-10-03] MEDS ORDERED: DILTIAZEM DRIP BOLUS FROM BAG 1 MG SOLN IV ONE (13:17)
--- NOTE | 2022-10-03 13:21 | ED ---
General Adult HPI - General Chief complaint: Arrhythmia/Palpitations Stated complaint: Afib Time Seen by Provider: 10/03/22 13:05 Source: patient, RN notes reviewed, old records reviewed Mode of arrival: ambulatory Limitations: no limitations - History of Present Illness Initial comments: This is a 62-year-old male who presents emergency Department with a past medical history significant for atrial fibrillation and he had ablation recently. Patient states she was taken off of his flecainide and 8:00 or after the procedure. Patient states the last days been having intermittent episodes of palpitations. Patient states the heart rate home was over 150. Patient denies any chest pain or shortness of breath per patient denies lightheadedness or di zziness. Patient states he is on eliquis. Patient denies any recent fever chills or cough. - Related Data Home Medications Medication Instructions Recorded Confirmed Lansoprazole [Prevacid] 30 mg PO DAILY 12/04/18 09/28/22 Losartan [Cozaar] 25 mg PO HS 12/04/18 09/28/22 Atorvastatin [Lipitor] 20 mg PO DAILY 09/23/22 09/28/22 Previous Rx's Medication Instructions Recorded Apixaban [Eliquis] 5 mg PO BID #60 tab 12/05/18 Allergies Allergy/AdvReac Type Severity Reaction Status Date / Time No Known Allergies Allergy Verified 10/03/22 13:04 Review of Systems ROS Statement: Those systems with pertinent positive or pertinent negative responses have been documented in the HPI. ROS Other: All systems not noted in ROS Statement are negative. Past Medical History Past Medical History: Atrial Fibrillation, GERD/Reflux, Hyperlipidemia, Hypertension Additional Past Medical History / Comment(s): Pacemaker - non functioning, states "battery ran out and Dr karimi said I didn't need it and just left it there." History of Any Multi-Drug Resistant Organisms: None Reported Past Surgical History: Cardiac Ablation, Hernia Repair, Orthopedic Surgery, Pacemaker Additional Past Surgical History / Comment(s): Shoulder surgery (does not recall which side), cardiac ablation X2, right knee surgery X2. Past Anesthesia/Blood Transfusion Reactions: No Reported Reaction Type of Cardiac Device: Unknown Device Placement Date:: 1996 Past Psychological History: No Psychological Hx Reported Smoking Status: Never smoker Past Alcohol Use History: Rare Past Drug Use History: None Reported - Past Family History Father Family Medical History: Coronary Artery Disease (CAD), Hypertension Additional Family Medical History / Comment(s): Father is alive at age 90 with previous history of 3 vessel CABG done in his early 60s and valve replacement done at age 82. Mother Family Medical History: Cancer, Diabetes Mellitus Additional Family Medical History / Comment(s): Mother at age 73 from metastatic skin cancer. Brother(s) Additional Family Medical History / Comment(s): Patient has one brother with history of hypertension. Patient has one sister with history of hypertension and diabetes. Patient has 4 children with no major medical problems. General Exam - General Exam Comments Initial Comments: GENERAL: Patient is well-developed and well-nourished. Patient is nontoxic and well- hydrated and is in no acute distress. ENT: Neck is soft and supple. No significant lymphadenopathy is noted. Oropharynx is clear. Moist mucous membranes. Neck has full range of motion without eliciting any pain. EYES: The sclera were anicteric and conjunctiva were pink and moist. Extraocular movements were intact and pupils were equal round and reactive to light. Eyelids were unremarkable. PULMONARY: Unlabored respirations. Good breath sounds bilaterally. No audible rales rhonchi or wheezing was noted. CARDIOVASCULAR: Patient has a heart rate of 150 beats a minute it is irregularly irregular. ABDOMEN: Soft and nontender with normal bowel sounds. No palpable organomegaly was noted. There is no palpable pulsatile mass. SKIN: Skin is clear with no lesions or rashes and otherwise unremarkable. NEUROLOGIC: Patient is alert and oriented x3. Cranial nerves II through XII are grossly intact. Motor and sensory are also intact. Normal speech, volume and content. Symmetrical smile. MUSCULOSKELETAL: Normal extremities with adequate strength and full range of motion. No lower extremity swelling or edema. No calf tenderness. LYMPHATICS: No significant lymphadenopathy is noted PSYCHIATRIC: Normal psychiatric evaluation. Limitations: no limitations Course Vital Signs 10/03/22 10/03/22 10/03/22 13:02 13:57 14:20 Temperature 97.8 F Pulse Rate 118 H 130 H 120 H Respiratory 22 18 Rate Blood Pressure 145/86 136/105 104/69 O2 Sat by Pulse 98 96 97 Oximetry 10/03/22 10/03/22 14:30 14:40 Temperature Pulse Rate 105 H 93 Respiratory 12 12 Rate Blood Pressure 104/69 114/85 O2 Sat by Pulse 96 96 Oximetry Medical Decision Making - Medical Decision Making EKG shows atrial fibrillation at 100 bpm QRS is 84 Q-T intervals to anyone QTC is 378 patient's EKG shows no ST segment elevation. Was pt. sent in by a medical professional or institution (, [facility], [facility], urgent care, hospital, or shelter...) When possible be specific @ -No Did you speak to anyone other than the patient for history (EMS, parent, family, police, friend...)? What history was obtained from this source @ -No Did you review nursing and triage notes (agree or disagree)? Why? @ -I reviewed and agree with nursing and triage notes Were old charts reviewed (outside hosp., previous admission, EMS record, old EKG, old radiological studies, urgent care reports/EKG's, shelter records)? Report findings @ -I reviewed patient's prior lab work in prior charts Differential Diagnosis (chest pain, altered mental status, abdominal pain women, abdominal pain men, vaginal bleeding, weakness, fever, dyspnea, syncope, headache, dizziness, GI bleed, back pain, seizure, CVA, palpatations, mental health, musculoskeletal)? @ -Differential Palpitations Ventricular arrhythmias, atrial arrhythmias, myocardial infarction, anemia, thyrotoxicosis, electrolyte imbalance, hypokalemia, pulmonary embolism, pulmonary disease, drugs, alcohol, anxiety, stress.... This is not meant to be an all-inclusive list. EKG interpreted by me (3pts min.). @ -As above X-rays interpreted by me (1pt min.). @ -Chest x-ray was interpreted by myself shows no acute abnormality. CT interpreted by me (1pt min.). @ -None done U/S interpreted by me (1pt. min.). @ -None done What testing was considered but not performed or refused? (CT, X-rays, U/S, labs)? Why? @ -None What meds were considered but not given or refused? Why? @ -None Did you discuss the management of the patient with other professionals (professionals i.e. [facility], [facility], lab, RT, psych nurse, social services technician, collection team lead, teacher, admissions officer, family caseworker)? Give summary @ -I spoke with Dr. Karimi he wanted the patient to get flecainide one dose and colchicine that was administered. I also started the patient on Cardizem after giving 5 mg Cardizem bolus. Patient did not convert was uncomfortable taking the patient home at this time so I admitted the patient I spoke with the symptoms can hospice. Was smoking cessation discussed for >3mins.? @ -No Was critical care preformed (if so, how long)? @ -35 minutes Were there social determinants of health that impacted care today? How? (Homelessness, low income, unemployed, alcoholism, drug addiction, transportation, low edu. Level, literacy, decrease access to med. care, skilled nursing, rehab)? @ -No Was there de-escalation of care discussed even if they declined (Discuss DNR or withdrawal of care, Hospice)? DNR status @ -No What co-morbidities impacted this encounter? (DM, HTN, Smoking, COPD, CAD, Cancer, CVA, ARF, Chemo, Hep., AIDS, mental health diagnosis, sleep apnea, morbid obesity)? @ -None Was patient admitted / discharged? Hospital course, mention meds given and route, prescriptions, significant lab abnormalities, going to OR and other pertinent info. @ -Will be admitted after he did not convert out of his atrial flutter he will be admitted to the [facility]. Dr. Karimi will be consulted and Cardizem will continue to run. Patient does not need any anticoagulation because of patient is oriented eliquis. Undiagnosed new problem with uncertain prognosis? @ -No Drug Therapy requiring intensive monitoring for toxicity (Heparin, Nitro, Insulin, Cardizem)? @ -No Were any procedures done? @ -No Diagnosis/symptom? @ -Atrial flutter with rapid ventricular response Acute, or Chronic, or Acute on Chronic? @ -Acute on chronic Uncomplicated (without systemic symptoms) or Complicated (systemic symptoms)? @ -Complicated Side effects of treatment? @ -No Exacerbation, Progression, or Severe Exacerbation? @ -No Poses a threat to life or bodily function? How? (Chest pain, USA, NV, pneumonia, PE, COPD, DKA, ARF, appy, cholecystitis, CVA, Diverticulitis, Homicidal, Suicidal, threat to staff... and all critical care pts) @ -Yes this could be due to Poor cardiac output and organ dysfunction - Lab Data Result diagrams: 10/03/22 13:36 10/03/22 13:36 Lab Results 10/03/22 10/03/22 10/03/22 Range/Units 13:36 13:36 13:36 WBC 5.9 (3.8-10.6) k/uL RBC 5.18 (4.30-5.90) m/uL Hgb 17.1 (13.0-17.5) gm/dL Hct 49.2 (39.0-53.0) % MCV 95.0 (80.0-100.0) fL MCH 32.9 (25.0-35.0) pg MCHC 34.6 (31.0-37.0) g/dL RDW 13.0 (11.5-15.5) % Plt Count 212 (150-450) k/uL MPV 7.2 Neutrophils % (Manual) 54 % Lymphocytes % (Manual) 36 % Monocytes % (Manual) 7 % Eosinophils % (Manual) 3 % Neutrophils # (Manual) 3.19 (1.3-7.7) k/uL Lymphocytes # (Manual) 2.12 (1.0-4.8) k/uL Monocytes # (Manual) 0.41 (0-1.0) k/uL Eosinophils # (Manual) 0.18 (0-0.7) k/uL Nucleated RBCs 0 (0-0) /100 WBC Manual Slide Review Performed RBC Morphology Normal Sodium 138 (137-145) mmol/L Potassium 5.2 H (3.5-5.1) mmol/L Chloride 103 (98-107) mmol/L Carbon Dioxide 30 (22-30) mmol/L Anion Gap 5 mmol/L BUN 15 (9-20) mg/dL Creatinine 1.10 (0.66-1.25) mg/dL Est GFR (CKD-EPI)AfAm 82 (>60 ml/min/1.73 sqM) Est GFR (CKD-EPI)NonAf 71 (>60 ml/min/1.73 sqM) Glucose 95 (74-99) mg/dL Calcium 9.4 (8.4-10.2) mg/dL Magnesium 1.9 (1.6-2.3) mg/dL Total Bilirubin 1.1 (0.2-1.3) mg/dL AST 36 (17-59) U/L ALT 41 (4-49) U/L Alkaline Phosphatase 90 (38-126) U/L Troponin I 0.985 H* (0.000-0.034) ng/mL Total Protein 7.4 (6.3-8.2) g/dL Albumin 4.3 (3.5-5.0) g/dL Critical Care Time Critical Care Time: Yes Total Critical Care Time: 35 Disposition Clinical Impression: Atrial flutter with rapid ventricular response Disposition: ADMITTED IP TO THIS HOSP Referrals: Jerzy Mars MD [Primary Care Provider] - 1-2 days Time of Disposition: 14:52
[2022-10-03] MEDS ORDERED: COLCHICINE 0.6 MG EACH PO STA (13:26)
[2022-10-03] MEDS ORDERED: FLECAINIDE 50 MG TAB PO STA (13:26)
[2022-10-03] MEDS ORDERED: DILTIAZEM 125 MG in SODIUM CHLORIDE 0.9% 100 ML IV SCH (13:30)
[2022-10-03 13:45] LABS: HCT 49.2 % (39.0-53.0); HGB 17.1 gm/dL (13.0-17.5); MCH 32.9 pg (25.0-35.0); MCHC 34.6 g/dL (31.0-37.0); Mean Platelet Volume 7.2; Platelet Count 212 k/uL (150-450); RBC 5.18 m/uL (4.30-5.90); WBC 5.9 k/uL (3.8-10.6)
[2022-10-03 14:00] LABS: Albumin 4.3 g/dL (3.5-5.0); Calcium 9.4 mg/dL (8.4-10.2); Magnesium 1.9 mg/dL (1.6-2.3); Potassium 5.2 mmol/L (3.5-5.1); Total Bilirubin 1.1 mg/dL (0.2-1.3); Total Protein 7.4 g/dL (6.3-8.2)
--- NOTE | 2022-10-03 14:07 | XR ---
EXAMINATION TYPE: XR chest 2V DATE OF EXAM: 10/03/2022 COMPARISON: Chest x-ray December 04, 2018 HISTORY: Dysrhythmia. TECHNIQUE: Frontal and lateral views of the chest are obtained. FINDINGS: There is no suspicious focal air space opacity, pleural effusion, or pneumothorax seen. T he cardiac silhouette size is upper limits of normal with dual-lead pacemaker redemonstrated.. The o sseous structures are intact. IMPRESSION: More prominent cardiac silhouette. No acute pulmonary process. Dual-lead pacemaker redem onstrated.
[2022-10-03 14:30] LABS: Eosinophils # (M) 0.18 k/uL (0-0.7); Lymphocytes # (M) 2.12 k/uL (1.0-4.8); Monocytes # (M) 0.41 k/uL (0-1.0); Neutrophils # (M) 3.19 k/uL (1.3-7.7); Neutrophils % (M) 54 %; Nucleated Red Blood Cells 0 /100 WBC (0-0); RBC Morphology Normal; Total Cells Counted 100
[2022-10-03] MEDS ORDERED: NITROGLYCERIN SL TABS 0.4 MG TAB SUBLINGUAL PRN (14:53)
[2022-10-03 17:24] VITALS: RESP 18
[2022-10-03 18:12] VITALS: BP 120/84; PULSE 82; TEMP 98.5
--- NOTE | 2022-10-03 20:32 | P.HPIM ---
History of Present Illness H&P Date: 10/03/22 Chief Complaint: Heart beating up fast Patient is a 62-year-old male with a known history of atrial fibrillation status post EP procedure on 09/28/2022, hypertension, hyperlipidemia, GERD and no prior history of smoking presents to ER with complaints of palpitations. Patient has been having symptoms intermittently since the procedure. Patient notices his heart rate went up to 150s while at home. Denies any complaints of chest pain or shortness of breath. No headache or dizziness or lightheadedness. Presented to ER for evaluation. Patient states that she is off flecainide since the procedure. Denies any complaints of fever or chills. No headache or dizziness or lightheadedness. No cough or sputum production. Laboratory showed WBC 5.9 hemoglobin 17.1 and platelets 212 Sodium 138 potassium 5.2, chloride 103 bicarb is 30 BUN 15 and creatinine 1.1 liver enzymes are not elevated Troponin 0.985, 0.872. Chest x-ray showed more prominent cardiac silhouette. No acute pulmonary process. Dual-lead pacemaker redemonstrated. EKG showed atrial flutter/tachycardia. With rapid ventricular response. Review of Systems Constitutional: Patient denies any fever or chills . no Generalized weakness. Abdomen: Patient denied any nausea or vomiting or abd. pain Cardiovascular: Patient denies any chest pain or short of breath . + palpitations. Respiratory: patient denied any cough . no sputum production. No shortness of breath Neurologic: Patient denied any numbness or tingling headache. Musculoskeletal: Patient denies any complaints of joint swelling or deformity. Skin: Negative Psychiatric: Negative Endocrine: No heat or cold intolerance. No recent weight gain. Genitourinary: No dysuria or hematuria. All other 14 point ROS negative except the above Past Medical History Past Medical History: Atrial Fibrillation, GERD/Reflux, Hyperlipidemia, Hypertension Additional Past Medical History / Comment(s): Pacemaker - non functioning, states "battery ran out and Dr mills said I didn't need it and just left it there." History of Any Multi-Drug Resistant Organisms: None Reported Past Surgical History: Cardiac Ablation, Hernia Repair, Orthopedic Surgery, Pacemaker Additional Past Surgical History / Comment(s): Shoulder surgery (does not recall which side), cardiac ablation X2, right knee surgery X2. Past Anesthesia/Blood Transfusion Reactions: No Reported Reaction Type of Cardiac Device: Unknown Device Placement Date:: 1996 Past Psychological History: No Psychological Hx Reported Smoking Status: Never smoker Past Alcohol Use History: Rare Past Drug Use History: None Reported - Past Family History Father Family Medical History: Coronary Artery Disease (CAD), Hypertension Additional Family Medical History / Comment(s): Father is alive at age 90 with previous history of 3 vessel CABG done in his early 60s and valve replacement done at age 82. Mother Family Medical History: Cancer, Diabetes Mellitus Additional Family Medical History / Comment(s): Mother at age 73 from metastatic skin cancer. Brother(s) Additional Family Medical History / Comment(s): Patient has one brother with history of hypertension. Patient has one sister with history of hypertension and diabetes. Patient has 4 children with no major medical problems. Medications and Allergies Home Medications Medication Instructions Recorded Confirmed Type Lansoprazole [Prevacid] 30 mg PO BID 12/04/18 10/09/22 History Losartan [Cozaar] 25 mg PO HS 12/04/18 10/09/22 History Apixaban [Eliquis] 5 mg PO BID #60 tab 12/05/18 10/09/22 Rx Atorvastatin [Lipitor] 20 mg PO HS 09/23/22 10/09/22 History Flecainide [Tambocor] 100 mg PO Q12HR #60 tab 10/07/22 10/09/22 Rx Metoprolol Tartrate [Lopressor] 25 mg PO BID #60 tab 10/07/22 10/09/22 Rx Colchicine [Colcrys] 0.6 mg PO DAILY #7 each 10/08/22 10/09/22 Rx Allergies Allergy/AdvReac Type Severity Reaction Status Date / Time No Known Allergies Allergy Verified 10/09/22 16:41 Physical Exam Vitals: Vital Signs Temp Pulse Resp BP Pulse Ox 10/03/22 18:11 98.5 F 82 120/84 96 10/03/22 17:00 89 18 110/93 98 10/03/22 16:30 87 18 91/77 96 10/03/22 16:00 92 18 113/95 97 10/03/22 15:30 108 H 8 L 114/85 97 10/03/22 15:00 116 H 18 114/85 97 10/03/22 14:40 93 12 114/85 96 10/03/22 14:30 105 H 12 104/69 96 10/03/22 14:20 120 H 18 104/69 97 10/03/22 13:57 130 H 136/105 96 10/03/22 13:02 97.8 F 118 H 22 145/86 98 Intake and Output 10/03/22 10/03/22 10/03/22 06:59 14:59 22:59 Intake Total 18.917 Balance 18.917 Intake: Intake, IV Titration 18.917 Amount Diltiazem 125 mg In 18.917 Sodium Chloride 0.9% 100 ml @ 5 MG/HR 5 mls/hr IV .Q24H [facility] Rx#:[id number] Other: Weight 117.934 kg PHYSICAL EXAMINATION: Patient is lying in the bed comfortably, no acute distress, awake alert and oriented.. HEENT: Normocephalic. Neck is supple. Pupils reactive. Nostrils clear. Oral cavity is moist. Neck reveals no JVD, carotid bruits, or thyromegaly. CHEST EXAMINATION: Trachea is central. Symmetrical expansion. Lung arreola clear to auscultation and percussion. CARDIAC: Normal S1, S2 with no gallops. No murmurs, irregular rhythm ABDOMEN: Soft. Bowel sounds present. Nontender. No organomegaly. No abdominal bruits. Extremities: reveal no edema. No clubbing or cyanosis Neurologically awake, alert, oriented x3 with well-coordinated movements. No focal deficits noted Skin: No rash or skin lesions. Psychiatric: Coperative. Nonsuicidal, Musculoskeletal: No joint swelling or deformity. Normal range of motion. Results CBC & Chem 7: 10/03/22 13:36 10/03/22 13:36 Labs: Abnormal Lab Results - Last 24 Hours (Table) 10/03/22 10/03/22 10/03/22 Range/Units 13:36 13:36 17:02 Potassium 5.2 H (3.5-5.1) mmol/L Troponin I 0.985 H* 0.872 H* (0.000-0.034) ng/mL Thrombosis Risk Factor Assmnt - DVT/VTE Prophylaxis DVT/VTE Prophylaxis: Pharmacologic Prophylaxis ordered Assessment and Plan Assessment: Atrial flutter with rapid ventricular response on admission Status post EP procedure on 09/28/2022 Elevated troponin level likely due to recent cardiac procedure. No complaints of chest pain. Atrial fibrillation paroxysmal on anticoagulation with Eliquis Hypertension Hyperlipidemia History of pacemaker placement History of cardiac ablation x2 DVT prophylaxis patient is already on full anticoagulation Plan: Patient will be continued telemetry monitoring. Troponin level trending down. Patient will be started back on home blood pressure medications and antiar rhythmics. Cardiology was consulted in the ER. Recommends to continue with current management and follow-up as an outpatient. Heart rate is controlled now patient is asymptomatic. Cleared from cardiology standpoint for discharge. Time with Patient: Greater than 30
[2022-10-04] MEDS ORDERED: ASPIRIN 325 MG TAB PO SCH (09:00)
--- NOTE | 2022-10-22 17:31 | P.DS ---
Providers Date of admission: 10/03/22 14:54 Expected date of discharge: 10/03/22 Attending physician: Eugenia Vieira Consults: 10/03/22 14:54 Consult Physician Urgent Consulting Provider: Jatinder Karimi Consult Reason/Comments: A flutter with rapid ventricular response Do you want consulting provider notified?: Already Contacted Primary care physician: Jerzy Mars Hospital Course: Discharge diagnosis Atrial flutter with rapid ventricular response on admission Status post EP procedure on 09/28/2022 Elevated troponin level likely due to recent cardiac procedure. No complaints of chest pain. Atrial fibrillation paroxysmal on anticoagulation with Eliquis Hypertension Hyperlipidemia History of pacemaker placement History of cardiac ablation x2 DVT prophylaxis patient is already on full anticoagulation Hospital course Patient is a 62-year-old male with a known history of atrial fibrillation status post EP procedure on 09/28/2022, hypertension, hyperlipidemia, GERD and no prior history of smoking presents to ER with complaints of palpitations. Patient has been having symptoms intermittently since the procedure. Patient notices his heart rate went up to 150s while at home. Denies any complaints of chest pain or shortness of breath. No headache or dizziness or lightheadedness. Presented to ER for evaluation. Patient states that she is off flecainide since the procedure. Denies any complaints of fever or chills. No headache or dizziness or lightheadedness. No cough or sputum production. Laboratory showed WBC 5.9 hemoglobin 17.1 and platelets 212 Sodium 138 potassium 5.2, chloride 103 bicarb is 30 BUN 15 and creatinine 1.1 liver enzymes are not elevated Troponin 0.985, 0.872. Chest x-ray showed more prominent cardiac silhouette. No acute pulmonary pro cess. Dual-lead pacemaker redemonstrated. EKG showed atrial flutter/tachycardia. With rapid ventricular response. Patient was continued telemetry monitoring. Troponin level trending down. Patient will be started back on home blood pressure medications and antiarrhythmics. Cardiology was consulted in the ER. Recommends to continue with current management and follow-up as an outpatient. Heart rate is controlled now patient is asymptomatic. Cleared from cardiology standpoint for discharge. Patient Condition at Discharge: Stable Plan - Discharge Summary New Discharge Prescriptions: Continue Losartan [Cozaar] 25 mg PO HS Lansoprazole [Prevacid] 30 mg PO BID Apixaban [Eliquis] 5 mg PO BID #60 tab Atorvastatin [Lipitor] 20 mg PO HS No Action Flecainide [Tambocor] 100 mg PO Q12HR #60 tab Metoprolol Tartrate [Lopressor] 25 mg PO BID #60 tab Colchicine [Colcrys] 0.6 mg PO DAILY #7 each Discharge Medication List Lansoprazole [Prevacid] 30 mg PO BID 12/04/18 [History] Losartan [Cozaar] 25 mg PO HS 12/04/18 [History] Apixaban [Eliquis] 5 mg PO BID #60 tab 12/05/18 [Rx] Atorvastatin [Lipitor] 20 mg PO HS 09/23/22 [History] Flecainide [Tambocor] 100 mg PO Q12HR #60 tab 10/07/22 [Rx] Metoprolol Tartrate [Lopressor] 25 mg PO BID #60 tab 10/07/22 [Rx] Colchicine [Colcrys] 0.6 mg PO DAILY #7 each 10/08/22 [Rx] Follow up Appointment(s)/Referral(s): Jerzy Mars MD [Primary Care Provider] - 1-2 days (Please call to schedule follow up.) Patient Instructions/Handouts: A-fib (Atrial Fibrillation) (IP) Discharge Disposition: HOME SELF-CARE
== END 2022-10-03 18:11 | disposition home or self-care (01) ==
LOC: EC 12:59 → INTOOBSV 14:54 → 3SCARD 14:54 → UNDODISIN 18:11
PROVIDERS: ADMIT Hospitalist; ATTEND Hospitalist
DX: I48.92 Unspecified atrial flutter (principal); R77.8 Other specified abnormalities of plasma proteins; I48.0 Paroxysmal atrial fibrillation; K21.9 Gastro-esophageal reflux disease without esophagitis; E78.5 Hyperlipidemia, unspecified; Z79.899 Other long term (current) drug therapy; Z79.01 Long term (current) use of anticoagulants; Z95.0 Presence of cardiac pacemaker; Z82.49 Family history of ischemic heart disease and other diseases of the circulatory system; Z63.4 Disappearance and death of family member; Z83.3 Family history of diabetes mellitus; Z80.8 Family history of malignant neoplasm of other organs or systems
CPT/HCPCS: 96365; 96366; 99291; 36415; 93005; 80053; 83735; 84484; 85025; 71046; G0378; 96375

== ENCOUNTER 2022-10-06 18:20 | Observation (INO) | payer BC ==
[2022-10-06] MEDS ORDERED: SODIUM CHLORIDE 0.9% 500 ML 500 ML IV STA (18:53)
[2022-10-06] MEDS ORDERED: DILTIAZEM DRIP BOLUS FROM BAG 1 MG SOLN IV ONE (18:58)
[2022-10-06] MEDS ORDERED: DILTIAZEM 125 MG in SODIUM CHLORIDE 0.9% 100 ML IV SCH (19:00)
--- NOTE | 2022-10-06 19:54 | ED ---
General Adult HPI - General Chief complaint: Arrhythmia/Palpitations Stated complaint: AFIB Time Seen by Provider: 10/06/22 18:47 Source: patient, RN notes reviewed, old records reviewed Mode of arrival: ambulatory Limitations: no limitations - History of Present Illness Initial comments: 62-year-old male presenting with palpitation and mid back pain. History of atrial fibrillation. Patient had recent admission with atrial fibrillation with RVR. He states that about 2 hours prior to arrival he believes that he went from sinus rhythm into atrial fibrillation. He had an ablation performed a little over a week ago. He is currently on metoprolol, flecainide, Eliquis. - Related Data Home Medications Medication Instructions Recorded Confirmed Lansoprazole [Prevacid] 30 mg PO BID 12/04/18 10/06/22 Losartan [Cozaar] 25 mg PO HS 12/04/18 10/06/22 Atorvastatin [Lipitor] 20 mg PO HS 09/23/22 10/06/22 Previous Rx's Medication Instructions Recorded Apixaban [Eliquis] 5 mg PO BID #60 tab 12/05/18 Flecainide [Tambocor] 100 mg PO Q12HR #60 tab 10/07/22 Metoprolol Tartrate [Lopressor] 25 mg PO BID #60 tab 10/07/22 Colchicine [Colcrys] 0.6 mg PO DAILY #7 each 10/08/22 Allergies Allergy/AdvReac Type Severity Reaction Status Date / Time No Known Allergies Allergy Verified 10/06/22 20:14 Review of Systems ROS Statement: Those systems with pertinent positive or pertinent negative responses have been documented in the HPI. ROS Other: All systems not noted in ROS Statement are negative. Past Medical History Past Medical History: Atrial Fibrillation, GERD/Reflux, Hyperlipidemia, Hypertension Additional Past Medical History / Comment(s): Pacemaker - non functioning, states "battery ran out and Dr mills said I didn't need it and just left it there." History of Any Multi-Drug Resistant Organisms: None Reported Past Surgical History: Cardiac Ablation, Hernia Repair, Orthopedic Surgery, Pacemaker Additional Past Surgical History / Comment(s): Shoulder surgery (does not recall which side), cardiac ablation X2, right knee surgery X2. Past Anesthesia/Blood Transfusion Reactions: No Reported Reaction Type of Cardiac Device: Unknown Device Placement Date:: 1996 Past Psychological History: No Psychological Hx Reported Smoking Status: Never smoker Past Alcohol Use History: Rare Past Drug Use History: None Reported - Past Family History Father Family Medical History: Coronary Artery Disease (CAD), Hypertension Additional Family Medical History / Comment(s): Father is alive at age 90 with previous history of 3 vessel CABG done in his early 60s and valve replacement done at age 82. Mother Family Medical History: Cancer, Diabetes Mellitus Additional Family Medical History / Comment(s): Mother at age 73 from metastatic skin cancer. Brother(s) Additional Family Medical History / Comment(s): Patient has one brother with history of hypertension. Patient has one sister with history of hypertension and diabetes. Patient has 4 children with no major medical problems. General Exam Limitations: no limitations General appearance: alert, in no apparent distress Head exam: Present: atraumatic, normocephalic Eye exam: Present: normal appearance, PERRL ENT exam: Present: normal exam Neck exam: Present: normal inspection. Absent: tenderness, meningismus Respiratory exam: Present: normal lung sounds bilaterally. Absent: respiratory distress, wheezes Cardiovascular Exam: Present: tachycardia, irregular rhythm GI/Abdominal exam: Present: soft. Absent: distended, tenderness, guarding Extremities exam: Present: normal inspection, normal capillary refill. Absent: calf tenderness Neurological exam: Present: alert, oriented X3, CN II-XII intact. Absent: motor sensory deficit Psychiatric exam: Present: normal affect, normal mood Skin exam: Present: diaphoretic. Absent: cyanosis Course Vital Signs 10/06/22 10/06/22 10/06/22 18:26 22:00 23:00 Temperature 97.8 F Pulse Rate 75 85 67 Pulse Rate [ Pulse Oximetery ] Respiratory 18 Rate Blood Pressure 135/114 125/88 108/80 Blood Pressure [Right Arm] O2 Sat by Pulse 98 96 97 Oximetry 10/06/22 10/07/22 10/07/22 23:45 00:00 01:00 Temperature Pulse Rate 62 70 66 Pulse Rate [ Pulse Oximetery ] Respiratory Rate Blood Pressure 86/57 91/68 89/67 Blood Pressure [Right Arm] O2 Sat by Pulse 97 94 L Oximetry 10/07/22 10/07/22 10/07/22 02:00 03:30 04:00 Temperature Pulse Rate 76 72 77 Pulse Rate [ Pulse Oximetery ] Respiratory 18 Rate Blood Pressure 91/60 97/65 97/65 Blood Pressure [Right Arm] O2 Sat by Pulse 93 L 96 Oximetry 10/07/22 10/07/22 10/07/22 05:00 06:00 07:16 Temperature Pulse Rate 76 79 60 Pulse Rate [ Pulse Oximetery ] Respiratory 18 Rate Blood Pressure 92/67 96/73 104/77 Blood Pressure [Right Arm] O2 Sat by Pulse 94 L 95 Oximetry 10/07/22 10/07/22 10/07/22 08:15 09:00 10:00 Temperature Pulse Rate 64 61 58 L Pulse Rate [ Pulse Oximetery ] Respiratory 18 18 18 Rate Blood Pressure 90/76 91/61 97/70 Blood Pressure [Right Arm] O2 Sat by Pulse 96 98 98 Oximetry 10/07/22 10/07/22 10/07/22 11:00 15:21 16:00 Temperature 97.3 F L Pulse Rate 56 L 68 Pulse Rate [ 62 Pulse Oximetery ] Respiratory 18 18 18 Rate Blood Pressure 105/81 115/82 Blood Pressure 116/76 [Right Arm] O2 Sat by Pulse 98 97 99 Oximetry EKG Findings - EKG Comments: EKG Findings:: EKG: Atrial fibrillation with RVR rate of 114, QRS duration 98, QTC [address] segment elevation Medical Decision Making - Medical Decision Making Was pt. sent in by a medical professional or institution ([facility], [employer], urgent care, hospital, or [facility]...) When possible be specific @ -No Did you speak to anyone other than the patient for history (EMS, parent, family, police, friend...)? What history was obtained from this source @ -No Did you review nursing and triage notes (agree or disagree)? Why? @ -I reviewed and agree with nursing and triage notes Were old charts reviewed (outside hosp., previous admission, EMS record, old EKG, old radiological studies, urgent care reports/EKG's, [facility] records)? Report findings @ -[Reviewed previous ER note and cardiology plan for antiarrhythmic. Differential Diagnosis (chest pain, altered mental status, abdominal pain women, abdominal pain men, vaginal bleeding, weakness, fever, dyspnea, syncope, headache, dizziness, GI bleed, back pain, seizure, CVA, palpatations, mental health, musculoskeletal)? @Differential Palpitations Ventricular arrhythmias, atrial arrhythmias, myocardial infarction, anemia, thyrotoxicosis, electrolyte imbalance, hypokalemia, pulmonary embolism, pulmonary disease, drugs, alcohol, anxiety, stress.... This is not meant to be an all-inclusive list. EKG interpreted by me (3pts min.). @ -As above X-rays interpreted by me (1pt min.). @ -None done CT interpreted by me (1pt min.). @ -None done U/S interpreted by me (1pt. min.). @ -None done What testing was considered but not performed or refused? (CT, X-rays, U/S, labs)? Why? @ -None What meds were considered but not given or refused? Why? @ -None Did you discuss the management of the patient with other professionals (professionals i.e. , PA, SPRINKLER INSTALLER, lab, RT, psych nurse, geriatric social work professor, spray foam installer, teacher, parking regulation enforcement officer, rifle case repairer)? Give summary @ -Case discussed with the admitting team, Fatou lynch for [facility] Was smoking cessation discussed for >3mins.? @ -No Was critical care preformed (if so, how long)? @ -No Were there social determinants of health that impacted care today? How? (Homelessness, low income, unemployed, alcoholism, drug addiction, transportation, low edu. Level, literacy, decrease access to med. care, skilled nursing, rehab)? @ -No Was there de-escalation of care discussed even if they declined (Discuss DNR or withdrawal of care, Hospice)? DNR status @ -No What co-morbidities impacted this encounter? (DM, HTN, Smoking, COPD, CAD, Cancer, CVA, ARF, Chemo, Hep., AIDS, mental health diagnosis, sleep apnea, morbid obesity)? @ -HTN a-fib Was patient admitted / discharged? Hospital course, mention meds given and route, prescriptions, significant lab abnormalities, going to OR and other p ertinent info. @ -Patient admitted for atrial fibrillation with RVR. Patient states that 2 days prior he had been in the emergency department and was treated with IV Cardizem and his dose of flecainide states that this did convert him back to sinus rhythm. Patient is quite symptomatic while in atrial fibrillation. He will be admitted for rate control and cardiology consultation. Undiagnosed new problem with uncertain prognosis? @ -No Drug Therapy requiring intensive monitoring for toxicity (Heparin, Nitro, Insulin, Cardizem)? @ -No Were any procedures done? @ -No Diagnosis/symptom? @ -Atrial fibrillation with RVR Acute, or Chronic, or Acute on Chronic? @ -acute Uncomplicated (without systemic symptoms) or Complicated (systemic symptoms)? @ -[complicated Side effects of treatment? @ -No Exacerbation, Progression, or Severe Exacerbation? @ -No Poses a threat to life or bodily function? How? (Chest pain, [place], [place], pneumonia, PE, COPD, DKA, ARF, appy, cholecystitis, CVA, Diverticulitis, Homicidal, Suicidal, threat to staff... and all critical care pts) @ -[yes, arrhythmia, cardiogenic shock - Lab Data Result diagrams: 10/06/22 19:52 10/06/22 19:52 Lab Results 10/06/22 10/06/22 10/06/22 Range/Units 19:52 19:52 19:52 WBC 7.9 (3.8-10.6) k/uL RBC 5.16 (4.30-5.90) m/uL Hgb 16.7 (13.0-17.5) gm/dL Hct 48.4 (39.0-53.0) % MCV 94.0 (80.0-100.0) fL MCH 32.4 (25.0-35.0) pg MCHC 34.5 (31.0-37.0) g/dL RDW 12.4 (11.5-15.5) % Plt Count 227 (150-450) k/uL MPV 7.1 Neutrophils % 48 % Lymphocytes % 37 % Monocytes % 8 % Eosinophils % 3 % Basophils % 0 % Neutrophils # 3.8 (1.3-7.7) k/uL Lymphocytes # 2.9 (1.0-4.8) k/uL Monocytes # 0.7 (0-1.0) k/uL Eosinophils # 0.3 (0-0.7) k/uL Basophils # 0.0 (0-0.2) k/uL PT 10.8 (9.0-12.0) sec INR 1.0 (<1.2) APTT 23.8 (22.0-30.0) sec Sodium 136 L (137-145) mmol/L Potassium 4.9 (3.5-5.1) mmol/L Chloride 103 (98-107) mmol/L Carbon Dioxide 27 (22-30) mmol/L Anion Gap 6 mmol/L BUN 20 (9-20) mg/dL Creatinine 1.11 (0.66-1.25) mg/dL Est GFR (CKD-EPI)AfAm 81 (>60 ml/min/1.73 sqM) Est GFR (CKD-EPI)NonAf 70 (>60 ml/min/1.73 sqM) Glucose 90 (74-99) mg/dL Calcium 9.3 (8.4-10.2) mg/dL Magnesium 2.2 (1.6-2.3) mg/dL Total Bilirubin 1.0 (0.2-1.3) mg/dL AST 35 (17-59) U/L ALT 38 (4-49) U/L Alkaline Phosphatase 78 (38-126) U/L Troponin I (0.000-0.034) ng/mL Total Protein 7.2 (6.3-8.2) g/dL Albumin 4.3 (3.5-5.0) g/dL 10/06/22 Range/Units 19:52 WBC (3.8-10.6) k/uL RBC (4.30-5.90) m/uL Hgb (13.0-17.5) gm/dL Hct (39.0-53.0) % MCV (80.0-100.0) fL MCH (25.0-35.0) pg MCHC (31.0-37.0) g/dL RDW (11.5-15.5) % Plt Count (150-450) k/uL MPV Neutrophils % % Lymphocytes % % Monocytes % % Eosinophils % % Basophils % % Neutrophils # (1.3-7.7) k/uL Lymphocytes # (1.0-4.8) k/uL Monocytes # (0-1.0) k/uL Eosinophils # (0-0.7) k/uL Basophils # (0-0.2) k/uL PT (9.0-12.0) sec INR (<1.2) APTT (22.0-30.0) sec Sodium (137-145) mmol/L Potassium (3.5-5.1) mmol/L Chloride (98-107) mmol/L Carbon Dioxide (22-30) mmol/L Anion Gap mmol/L BUN (9-20) mg/dL Creatinine (0.66-1.25) mg/dL Est GFR (CKD-EPI)AfAm (>60 ml/min/1.73 sqM) Est GFR (CKD-EPI)NonAf (>60 ml/min/1.73 sqM) Glucose (74-99) mg/dL Calcium (8.4-10.2) mg/dL Magnesium (1.6-2.3) mg/dL Total Bilirubin (0.2-1.3) mg/dL AST (17-59) U/L ALT (4-49) U/L Alkaline Phosphatase (38-126) U/L Troponin I 0.252 H* (0.000-0.034) ng/mL Total Protein (6.3-8.2) g/dL Albumin (3.5-5.0) g/dL Disposition Clinical Impression: Atrial fibrillation with RVR Disposition: ADMITTED IP TO THIS HOSP Condition: Stable Is patient prescribed a controlled substance at d/c from ED?: No Time of Disposition: 21:13
[2022-10-06 20:49] LABS: Basophils % (A) 0 %; Eosinophils # (A) 0.3 k/uL (0-0.7); Eosinophils % (A) 3 %; HCT 48.4 % (39.0-53.0); HGB 16.7 gm/dL (13.0-17.5); Lymphocytes # (A) 2.9 k/uL (1.0-4.8); Lymphocytes % (A) 37 %; MCH 32.4 pg (25.0-35.0); MCHC 34.5 g/dL (31.0-37.0); Mean Platelet Volume 7.1; Monocytes # (A) 0.7 k/uL (0-1.0); Monocytes % (A) 8 %; Neutrophils # (A) 3.8 k/uL (1.3-7.7); Neutrophils % (A) 48 %; Platelet Count 227 k/uL (150-450); RBC 5.16 m/uL (4.30-5.90); RDW 12.4 % (11.5-15.5); WBC 7.9 k/uL (3.8-10.6)
[2022-10-06 20:55] LABS: Partial Thromboplastin Time 23.8 sec (22.0-30.0); Prothrombin Time 10.8 sec (9.0-12.0)
[2022-10-06 21:06] LABS: Albumin 4.3 g/dL (3.5-5.0); Calcium 9.3 mg/dL (8.4-10.2); Magnesium 2.2 mg/dL (1.6-2.3); Potassium 4.9 mmol/L (3.5-5.1); Total Protein 7.2 g/dL (6.3-8.2)
[2022-10-06] MEDS ORDERED: ACETAMINOPHEN TAB 325 MG TAB PO PRN (21:10)
[2022-10-06] MEDS ORDERED: NALOXONE 0.4 MG/ML 1 ML VIAL IV PRN (21:10)
[2022-10-06] MEDS: APIXABAN 5 MG TAB PO SCH (21:44)
[2022-10-06] MEDS: ATORVASTATIN 20 MG TAB PO SCH (21:45)
[2022-10-06] MEDS: LOSARTAN 25 MG TAB PO SCH (21:45)
[2022-10-06] MEDS: PANTOPRAZOLE 40 MG TABLET PO SCH (21:45)
[2022-10-06] MEDS: METOPROLOL TARTRATE 25 MG TAB PO SCH (21:46)
[2022-10-06] MEDS: FLECAINIDE 50 MG TAB PO SCH (21:46)
[2022-10-07] MEDS: FLECAINIDE 50 MG TAB PO SCH ×2 (08:17→20:14)
[2022-10-07] MEDS: PANTOPRAZOLE 40 MG TABLET PO SCH ×2 (08:17→20:14)
[2022-10-07] MEDS: APIXABAN 5 MG TAB PO SCH ×2 (08:18→20:14)
[2022-10-07] MEDS: METOPROLOL TARTRATE 25 MG TAB PO SCH ×2 (08:32→20:14)
[2022-10-07] MEDS ORDERED: FLECAINIDE 50 MG TAB PO STA (08:54)
[2022-10-07] MEDS ORDERED: ASPIRIN 325 MG TAB PO SCH (09:00)
--- NOTE | 2022-10-07 12:36 | P.HPIM ---
History of Present Illness H&P Date: 10/07/22 This is a 62 year old male with medical history of atrial fibrillation maintain on anticoagulation and follows with Dr. Karimi. Patient recently underwent EP ablation. He presents to the hospital with Palpitations and mid back pain and concern hes back in atrial fibrillation which started about 2 hours prior to arrival. He did have troponin leak at 0.252, 0.241, 0.287. Initial EKG shows atrial fibrillation with rapid ventricular rate with heart rate of 114. He was started on IV cardizem in the EC and did convert to normal sinus rhythm currently maintaining in the 60s. He reports his symptoms have essentially resolved. He denies chest pain, no shortness of breath. No dizziness or lightheadedness. No recent illness, no fever or chills. Denies any recent sick contact. He He has been taken off the cardizem gtt and his flecainide dose has been increased. Echocardiogram has been done and pending results. Cardiology has evaluated the patient and recommended to monitor overnight on cardiac telemetry and likely will D/C home tomorrow. REVIEW OF SYSTEMS: CONSTITUTIONAL: No fever, no malaise, no fatigue. HEENT: No recent visual problems or hearing problems. Denied any sore throat. CARDIOVASCULAR: No chest pain, orthopnea, PND, no palpitations, no syncope. PULMONARY: No shortness of breath, no cough, no hemoptysis. GASTROINTESTINAL: No diarrhea, no nausea, no vomiting, no abdominal pain. NEUROLOGICAL: No headaches, no weakness, no numbness. HEMATOLOGICAL: Denies any bleeding or petechiae. GENITOURINARY: Denies any burning micturition, frequency, or urgency. MUSCULOSKELETAL/RHEUMATOLOGICAL: Denies any joint pain, swelling, or any muscle pain. ENDOCRINE: Denies any polyuria or polydipsia. The rest of the 14-point review of systems is negative. PHYSICAL EXAMINATION: GENERAL: The patient is alert and oriented x3, not in any acute distress. Well developed, well nourished. HEENT: Pupils are round and equally reacting to light. EOMI. No scleral icterus. No conjunctival pallor. Normocephalic, atraumatic. No pharyngeal erythema. No thyromegaly. CARDIOVASCULAR: S1 and S2 present. No murmurs, rubs, or gallops. PULMONARY: Chest is clear to auscultation, no wheezing or crackles. ABDOMEN: Soft, nontender, nondistended, normoactive bowel sounds. No palpable organomegaly. MUSCULOSKELETAL: No joint swelling or deformity. EXTREMITIES: No cyanosis, clubbing, or pedal edema. NEUROLOGICAL: Gross neurological examination did not reveal any focal deficits. SKIN: No rashes. Assessment and Plan Assessment Atrial fibrillation with rapid ventricular rate currently in normal sinus rhythm after given IV cardizem. He has been resumed on home medications with increase in flecainide dosing. Status post atrial fibrillation ablation about 1 week ago Paroxysmal atrial fibrillation anticoagulated with eliquis History hypertension History hyperipidemia History of pacemaker not functioning Prior alcohol use, none recently GI prophylaxis DVT prophylaxis Full Code Plan Medication changes per cardiology Echocardiogram completed and pending Patient hoping to D/C home today, cardiology recommending to monitor overnight on cardiac telemetry and likely will D/C home tomorrow. The impression and plan of care has been dictated by Fatou Bernard Nurse Practitioner as directed. Dr. Arnulfo MD I have performed a history and physical examination and medical decision making of this patient, discussed the same with the dictator, and agree with the dictators assessment and plan as written, documented as a scribe. Based on total visit time, I have performed more than 50% of this visit. Past Medical History Past Medical History: Atrial Fibrillation, GERD/Reflux, Hyperlipidemia, Hypertension Additional Past Medical History / Comment(s): Pacemaker - non functioning, states "battery ran out and Dr karimi said I didn't need it and just left it there." History of Any Multi-Drug Resistant Organisms: None Reported Past Surgical History: Cardiac Ablation, Hernia Repair, Orthopedic Surgery, P acemaker Additional Past Surgical History / Comment(s): Shoulder surgery (does not recall which side), cardiac ablation X2, right knee surgery X2. Past Anesthesia/Blood Transfusion Reactions: No Reported Reaction Type of Cardiac Device: Unknown Device Placement Date:: 1996 Past Psychological History: No Psychological Hx Reported Smoking Status: Never smoker Past Alcohol Use History: Rare Past Drug Use History: None Reported - Past Family History Father Family Medical History: Coronary Artery Disease (CAD), Hypertension Additional Family Medical History / Comment(s): Father is alive at age 90 with previous history of 3 vessel CABG done in his early 60s and valve replacement done at age 82. Mother Family Medical History: Cancer, Diabetes Mellitus Additional Family Medical History / Comment(s): Mother at age 73 from metastatic skin cancer. Brother(s) Additional Family Medical History / Comment(s): Patient has one brother with history of hypertension. Patient has one sister with history of hypertension and diabetes. Patient has 4 children with no major medical problems. Medications and Allergies Home Medications Medication Instructions Recorded Confirmed Type Lansoprazole [Prevacid] 30 mg PO BID 12/04/18 10/06/22 History Losartan [Cozaar] 25 mg PO HS 12/04/18 10/06/22 History Apixaban [Eliquis] 5 mg PO BID #60 tab 12/05/18 10/06/22 Rx Atorvastatin [Lipitor] 20 mg PO HS 09/23/22 10/06/22 History Flecainide [Tambocor] 100 mg PO Q12HR #60 tab 10/07/22 Rx Metoprolol Tartrate [Lopressor] 25 mg PO BID #60 tab 10/07/22 Rx Allergies Allergy/AdvReac Type Severity Reaction Status Date / Time No Known Allergies Allergy Verified 10/06/22 20:14 Physical Exam Vitals: Vital Signs Temp Pulse Resp BP Pulse Ox 10/07/22 08:15 64 18 90/76 96 10/07/22 07:16 60 18 104/77 95 10/07/22 06:00 79 96/73 10/07/22 05:00 76 92/67 94 L 10/07/22 04:00 77 97/65 96 10/07/22 03:30 72 18 97/65 10/07/22 02:00 76 91/60 93 L 10/07/22 01:00 66 89/67 94 L 10/07/22 00:00 70 91/68 97 10/06/22 23:45 62 86/57 10/06/22 23:00 67 108/80 97 10/06/22 22:00 85 125/88 96 10/06/22 18:26 97.8 F 75 18 135/114 98 Intake and Output 10/06/22 10/07/22 10/07/22 22:59 06:59 14:59 Other: Weight 117.934 kg Results CBC & Chem 7: 10/06/22 19:52 10/06/22 19:52 Labs: Abnormal Lab Results - Last 24 Hours (Table) 10/06/22 10/06/22 10/06/22 Range/Units 19:52 19:52 22:52 Sodium 136 L (137-145) mmol/L Troponin I 0.252 H* 0.241 H* (0.000-0.034) ng/mL 10/07/22 Range/Units 02:27 Sodium (137-145) mmol/L Troponin I 0.287 H* (0.000-0.034) ng/mL Assessment and Plan Time with Patient: Less than 30
--- NOTE | 2022-10-07 17:24 | CA ---
Transthoracic Echo Report Name: Edgar Martínez Age: 62 Gender: M : 1960 Exam Date: 10/07/2022 09:41 Exam Location: [place] [facility] Ht (in): 72 Wt (lb): 260 Ordering Physician: Jeffrey Dominguez MD ([id number]) Attending/Referring Phys: Angelica JUNIOR Beverage Specialist Vidal Del Real RDCS Procedure CPT: Indications: afib Cardiac Hx: Technical Quality: Fair Contrast 1: Total Dose (mL): Contrast 2: Total Dose (mL): MEASUREMENTS (Male / Female) Normal Values 2D ECHO LV Diastolic Diameter PLAX 4.0 cm 4.2 - 5.9 / 3.9 - 5.3 cm LV Systolic Diameter PLAX 3.0 cm IVS Diastolic Thickness 1.7 cm 0.6 - 1.0 / 0.6 - 0.9 cm LVPW Diastolic Thickness 1.4 cm 0.6 - 1.0 / 0.6 - 0.9 cm LV Relative Wall Thickness 0.8 RV Internal Dim ED PLAX 3.4 cm LA Volume 71.3 cm??? 18 - 58 / 22 - 52 cm??? M-MODE Aortic Root Diameter MM 3.8 cm AV Cusp Separation MM 2.6 cm DOPPLER AV Peak Velocity 84.4 cm/s AV Peak Gradient 2.9 mmHg LVOT Peak Velocity 83.6 cm/s LVOT Peak Gradient 2.8 mmHg MV Area PHT 5.4 cm??? Mitral E Point Velocity 71.8 cm/s Mitral A Point Velocity 27.9 cm/s Mitral E to A Ratio 2.6 MV Deceleration Time 141.1 ms TR Peak Velocity 222.4 cm/s TR Peak Gradient 19.8 mmHg PV Peak Velocity 49.5 cm/s PV Peak Gradient 1.0 mmHg FINDINGS Left Ventricle Severely increased septal wall thickness. Small left ventricular cavity. Grade 4 diastolic dysfunction. Left ventricular ejection fraction is estimated at 45- 50%. Right Ventricle Right ventricular dilatation. RVOT diameter measuring 3.8cm. Right Atrium Right atrial dilatation. Left Atrium Moderately increased left atrial volume. Mitral Valve Mild mitral regurgitation. Aortic Valve Trileaflet aortic valve. No aortic stenosis. Trace aortic regurgitation. Tricuspid Valve Mild tricuspid regurgitation. Pulmonic Valve Mild pulmonic regurgitation. Pericardium No pericardial or pleural effusion. Aorta Aortic dilatation at the level of the sinuses of valsalva (root). Normal size proximal ascending aorta. CONCLUSIONS Normal LV size, concentric LVH more so of the septum. Mild global decrease in contractility with estimated ejection fraction of 45-50%. Mild mitral and tricuspid regurgitation. Enlarged left atrium no pericardial effusion Previewed by: Dr. Michael Shah MD (Electronically Signed) Final Date: 07 October 2022 17:23
[2022-10-07] MEDS: LOSARTAN 25 MG TAB PO SCH (20:14)
[2022-10-07] MEDS: ATORVASTATIN 20 MG TAB PO SCH (20:14)
--- NOTE | 2022-10-07 20:31 | CONS ---
CONSULTATION CHIEF COMPLAINT: Palpitations. HISTORY OF PRESENT ILLNESS: Edgar is a 62-year-old gentleman with history of paroxysmal atrial fibrillation for which he underwent an ablation last month, comes in with recurrent bouts of atrial fibrillation that he describes as sustained palpitations. The patient underwent ablation for persistent atrial fibrillation. He had atrial flutter and underwent ablation for the same many years ago at [facility]. The patient was readmitted to hospital on 10/03/2022 with an episode of atrial fibrillation with rapid ventricular rate and converted back to sinus rhythm and was discharged home. On his presentation this time, he was in atrial fibrillation with a heart rate of 115 beats per minute, converted back to sinus rhythm, and at the time of my evaluation, he is in normal sinus rhythm and is free of symptoms. He is currently on flecainide 50 mg b.i.d. along with Eliquis 5 mg b.i.d. I am going to increase the dose of flecainide to 100 mg b.i.d., and hopefully, this will keep him in sinus rhythm. If he is tolerating it well, I will discharge him home tomorrow. PAST MEDICAL HISTORY: Significant for paroxysmal atrial fibrillation and flutter along with hypertension and dyslipidemia. MEDICATIONS: At home include: 1. Sildenafil. 2. Cozaar 25 daily. 3. Prevacid. 4. Lipitor 20 daily. 5. Aspirin. 6. Eliquis 5 b.i.d. ALLERGIES: There are no known drug allergies. FAMILY HISTORY: Negative for premature coronary artery disease. SOCIAL HISTORY: Negative for smoking, EtOH abuse, or drug abuse. REVIEW OF SYSTEMS: HEENT: Unremarkable. CARDIAC: As described above. RESPIRATORY: Negative. GI: Negative. GENITOURINARY: Negative. ALLERGY/IMMUNOLOGY: Negative. SKIN: Negative. MUSCULOSKELETAL: Negative. ENDOCRINE: Negative. DERM: Negative. CONSTITUTIONAL: Negative. ONCOLOGICAL: Negative. CARRIER DRIVER: Negative. Rest of the system review is not relevant. PHYSICAL EXAMINATION: GENERAL: Comfortable at rest. VITAL SIGNS: Stable. NECK: There is no jugular venous distention. Carotid upstroke is normal. There is no bruit. CHEST: Reveals good air entry bilaterally. HEART: Reveals first and second heart sounds. No gallop. No murmur. There is no pericardial rub. ABDOMEN: Soft. EXTREMITIES: Do not reveal any edema. DIAGNOSTIC STUDIES: EKG is as described above. LABS: Show a hemoglobin of 16.7, platelet count is 227. Potassium is 4.9. Troponins are mildly elevated at 0.2, 0.2, and 0.2, probably related to recent instrumentation. Creatinine is normal at 1.1. ASSESSMENT: 1. Paroxysmal atrial fibrillation and status post recent ablation. 2. Elevated troponin, probably related to the recent cryoablation. PLAN: I will increase the dose of flecainide. Continue rest of his medications. Obtain a 2D echo. Hopefully home tomorrow. MMODL / IJN: [id number] /
[2022-10-08] MEDS ORDERED: COLCHICINE 0.6 MG EACH PO SCH (09:00)
[2022-10-08] MEDS: METOPROLOL TARTRATE 25 MG TAB PO SCH (10:02)
[2022-10-08] MEDS: PANTOPRAZOLE 40 MG TABLET PO SCH (10:02)
[2022-10-08] MEDS: FLECAINIDE 50 MG TAB PO SCH (10:02)
[2022-10-08] MEDS: APIXABAN 5 MG TAB PO SCH (10:02)
--- NOTE | 2022-10-08 10:29 | CA ---
Transthoracic Echo Report Name: Edgar Martínez Age: 62 Gender: M : 1960 Exam Date: 10/08/2022 08:52 Exam Location: [facility] Ht (in): 74 Wt (lb): 260 Ordering Physician: Jatinder Karimi MD ([id number]) Attending/Referring Phys: Cardiac Specialist Dixie Arellano, EV Procedure CPT: Indications: lv and rv size /fn Cardiac Hx: limited study Technical Quality: Fair Contrast 1: Lumason Total Dose (mL): 3 Contrast 2: Total Dose (mL): MEASUREMENTS (Male / Female) Normal Values 2D ECHO LV Diastolic Diameter PLAX 4.5 cm 4.2 - 5.9 / 3.9 - 5.3 cm IVS Diastolic Thickness 1.2 cm 0.6 - 1.0 / 0.6 - 0.9 cm LVPW Diastolic Thickness 1.1 cm 0.6 - 1.0 / 0.6 - 0.9 cm LV Relative Wall Thickness 0.5 RV Internal Dim ED PLAX 3.8 cm M-MODE LV Diastolic Diameter MM 5.4 cm 4.2 - 5.9 / 3.9 - 5.3 cm IVS Diastolic Thickness MM 1.1 cm 0.6 - 1.0 / 0.6 - 0.9 cm LVPW Diastolic Thickness MM 1.4 cm 0.6 - 1.0 / 0.6 - 0.9 cm LV Relative Wall Thickness MM 0.5 0.24 - 0.42 / 0.22 - 0.42 LV Mass Index MM 111.3 g/m??? 49 - 115 / 43 - 95 g/m??? DOPPLER TR Peak Velocity 270.8 cm/s TR Peak Gradient 29.3 mmHg Right Ventricular Systolic Press 34.3 mmHg FINDINGS Left Ventricle Limited study. Left ventricular ejection fraction is estimated at 50-55 %. Left ventricular cavity size normal. Moderately increased left ventricular mass. Mildly increased septal wall thickness. Moderately increased posterior wall thickness. Mildly increased left ventricular relative wall thickness. Right Ventricle Moderate right ventricular dilatation. Right ventricular systolic pressure estimated at 34 mm hg. Right Atrium Left Atrium Mitral Valve Aortic Valve Tricuspid Valve Pulmonic Valve Pericardium Normal pericardium. No pericardial effusion. Aorta CONCLUSIONS Normal LV size and systolic function with concentric LVH area did no pericardial effusion Previewed by: Dr. Michael Shah MD (Electronically Signed) Final Date: 08 October 2022 10:28
[2022-10-08 12:16] VITALS: BP 119/74; PULSE 55; RESP 16; TEMP 97.4
--- NOTE | 2022-10-08 13:30 | P.PN ---
Subjective Progress Note Date: 10/08/22 HISTORY OF PRESENT ILLNESS: Examined this morning. He is sitting up in the chair. He denies chest pain or pressure. He denies shortness of breath. Telemetry reveals sinus mechanism. Limited echocardiogram performed revealing normal LV size and systolic function with concentric LVH. No pericardial effusion. PHYSICAL EXAM: VITAL SIGNS: Reviewed. GENERAL: Well-developed in no acute distress. NECK: Supple. No JVD or thyromegaly LUNGS: Respirations even and unlabored. Lungs essentially clear to auscultation bilaterally. HEART: Regular rate and rhythm. S1 and S2 heard. EXTREMITIES: Normal range of motion. No clubbing or cyanosis. Peripheral pulses intact. No lower extremity edema ASSESSMENT: Paroxysmal atrial fibrillation, currently maintaining sinus mechanism Recent A. fib ablation Abnormal troponin, likely secondary to recent cryoablation, no evidence of ACS PLAN: Continue current cardiac medications Patient's Flecainide dose was increased yesterday to 100 mg twice a day Patient was started on colchicine this morning by Dr. Karimi. He would like him to be discharged on this for one week. Patient is stable for discharge home today from a cardiac standpoint He is to follow up on an outpatient basis. Nurse practitioner note has been reviewed by physician. Signing provider agrees with the documented findings, assessment, and plan of care. Objective - Vital Signs Vital signs: Vital Signs Temp 97.4 F L 10/08/22 12:10 Pulse 55 L 10/08/22 12:10 Resp 16 10/08/22 12:10 BP 119/74 10/08/22 12:10 Pulse Ox 98 10/08/22 12:10 FiO2 Intake & Output 10/07/22 10/08/22 10/08/22 18:59 06:59 18:59 Intake Total 118 240 Balance 118 240 Intake: Oral 118 240 Other: Voiding Method Toilet # Voids 1 - Labs CBC & Chem 7: 10/06/22 19:52 10/06/22 19:52
--- NOTE | 2022-10-09 15:54 | P.DS ---
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 Patient will follow-up with Dr. Mars in the outpatient setting upon discharge. Patient is to low up with cardiology outpatient as scheduled. Patient will be continued on adjusted meds per cardiology with close outpatient follow-up. Total time taken is greater than 35 minutes. Hospital course This is a 62-year-old male who was recently admitted with atrial fibrillation with RVR and being closely monitored with cardiology following. Patient recently had an ablation approximately one week ago and is maintained on anticoagulation. Patient having adjustments in medications including an increase in flecanide and colchicine for a week and close outpatient follow-up next week. Patient has been cleared by cardiology for discharge. Please refer to cardiology note for further HPI. Patient reports to feeling well and denies palpitations and would like to go home. Currently no reports of chest pain, shortness of breath, or palpitations. Patient is afebrile. No reports of nausea or vomiting and patient is tolerating diet. Patient will be discharged home today. Guarded prognosis Physical exam: Gen: This is a 62-year-old male who is awake, alert and oriented 3, well-deve loped, well-nourished, obese HEENT: Head is atraumatic, normocephalic. Pupils equal, round. Sclerae is anicteric. NECK: Supple. No JVD. No lymphadenopathy. No thyromegaly. LUNGS: Breath sounds bilaterally with no wheezing or rhonchi noted. No intercostal retractions. HEART: S1, S2 are muffled, irregular ABDOMEN: Soft. Bowel sounds are present. No masses. No tenderness. EXTREMITIES: No pedal edema. No calf tenderness. NEUROLOGICAL: Patient is awake, alert and oriented x3. Cranial nerves 2 through 12 are grossly intact. Please refer to medication reconciliation sheet for a list of medications. The impression and plan of care has been dictated by Jalyn Davis, Nurse Practitioner as directed. Dr. Dariel MD I have performed a history and examination and MDM of this patient, discussed the same with the dictator, and agree with the dictator's assessment and plan as written ,documented as a scribe. Based on total visit time, I have performed more than 50% of the visit. Patient Condition at Discharge: Stable Plan - Discharge Summary Discharge Rx Participant: No New Discharge Prescriptions: New Flecainide [Tambocor] 100 mg PO Q12HR #60 tab Metoprolol Tartrate [Lopressor] 25 mg PO BID #60 tab Colchicine [Colcrys] 0.6 mg PO DAILY #7 each Continue Losartan [Cozaar] 25 mg PO HS Lansoprazole [Prevacid] 30 mg PO BID Apixaban [Eliquis] 5 mg PO BID #60 tab Atorvastatin [Lipitor] 20 mg PO HS Discontinued Sildenafil Citrate 25 mg PO DAILY PRN PRN Reason: e.d. Aspirin 325 mg PO DAILY tab Discharge Medication List Lansoprazole [Prevacid] 30 mg PO BID 12/04/18 [History] Losartan [Cozaar] 25 mg PO HS 12/04/18 [History] Apixaban [Eliquis] 5 mg PO BID #60 tab 12/05/18 [Rx] Atorvastatin [Lipitor] 20 mg PO HS 09/23/22 [History] Flecainide [Tambocor] 100 mg PO Q12HR #60 tab 10/07/22 [Rx] Metoprolol Tartrate [Lopressor] 25 mg PO BID #60 tab 10/07/22 [Rx] Colchicine [Colcrys] 0.6 mg PO DAILY #7 each 10/08/22 [Rx] Follow up Appointment(s)/Referral(s): Jatinder Karimi MD [STAFF PHYSICIAN] - 1 Week (Please attend your already scheduled appointment on October 13.) Jerzy aMrs MD [Primary Care Provider] - 1-2 days (Please call during busin ess hours to schedule your follow up appointment.) Patient Instructions/Handouts: A-fib (Atrial Fibrillation) (ED) Discharge Disposition: HOME SELF-CARE
== END 2022-10-08 14:10 | disposition home or self-care (01) ==
LOC: EC 18:20 → 3SCARD 21:11 → INTOOBSV 21:11 → 3SCARD 21:20 → UNDODISIN 10-08 14:10
PROVIDERS: ADMIT Hospitalist; ATTEND Hospitalist
DX: I48.0 Paroxysmal atrial fibrillation (principal); K21.9 Gastro-esophageal reflux disease without esophagitis; E78.5 Hyperlipidemia, unspecified; I10 Essential (primary) hypertension; E66.9 Obesity, unspecified; I08.3 Combined rheumatic disorders of mitral, aortic and tricuspid valves; I37.1 Nonrheumatic pulmonary valve insufficiency; Z95.0 Presence of cardiac pacemaker; Z79.01 Long term (current) use of anticoagulants; Z79.899 Other long term (current) drug therapy; Z82.49 Family history of ischemic heart disease and other diseases of the circulatory system; Z83.3 Family history of diabetes mellitus; Z80.8 Family history of malignant neoplasm of other organs or systems; Z79.82 Long term (current) use of aspirin; Z68.33 Body mass index [BMI] 33.0-33.9, adult
CPT/HCPCS: 96365; 96366; 99285; 36415; 93005; 93308; 93306; 80053; 83735; 84484 ×2; 85025; 85610; 85730; G0378 ×3

== ENCOUNTER 2022-10-09 15:21 | Emergency (ER) | payer BC ==
[2022-10-09 15:29] VITALS: TEMP 98.4
[2022-10-09] MEDS ORDERED: FLECAINIDE 50 MG TAB PO STA (15:53)
--- NOTE | 2022-10-09 15:55 | ED ---
Arrhythmia/Palpitations HPI - General Chief Complaint: Arrhythmia/Palpitations Stated Complaint: Chest pain Source: patient Mode of arrival: ambulatory Limitations: no limitations - History of Present Illness Initial Comments: This patient is a 62-year-old man with history of previous atrial fibrillation, who had ablation on September [address] Mills, presenting with complaints of rapid irregular heartbeat. He states that it came on again this afternoon proximally 3 hours ago. He states that he was sitting and watching television. He hadn't taken his morning meds prior to that did not miss any cardiac medications. He has had a little bit of dyspnea. No chest pain, diaphoresis, nausea vomiting or syncope. MD Complaint: rapid heart beat -: hour(s) Context: occurred during rest Arrhythmia History: atrial fibrillation, history of ablation Associated Symptoms: shortness of breath - Related Data Home Medications Medication Instructions Recorded Confirmed Lansoprazole [Prevacid] 30 mg PO BID 12/04/18 10/09/22 Losartan [Cozaar] 25 mg PO HS 12/04/18 10/09/22 Atorvastatin [Lipitor] 20 mg PO HS 09/23/22 10/09/22 Previous Rx's Medication Instructions Recorded Apixaban [Eliquis] 5 mg PO BID #60 tab 12/05/18 Flecainide [Tambocor] 100 mg PO Q12HR #60 tab 10/07/22 Metoprolol Tartrate [Lopressor] 25 mg PO BID #60 tab 10/07/22 Colchicine [Colcrys] 0.6 mg PO DAILY #7 each 10/08/22 Allergies Allergy/AdvReac Type Severity Reaction Status Date / Time No Known Allergies Allergy Verified 10/09/22 16:41 Review of Systems ROS Statement: Those systems with pertinent positive or pertinent negative responses have been documented in the HPI. ROS Other: All systems not noted in ROS Statement are negative. Constitutional: Denies: fever, chills Respiratory: Reports: dyspnea. Denies: cough, wheezes Cardiovascular: Reports: palpitations. Denies: chest pain, dyspnea on exertion, edema, syncope Gastrointestinal: Denies: abdominal pain, nausea, vomiting Genitourinary: Denies: dysuria, hematuria Musculoskeletal: Denies: back pain Skin: Denies: rash Neurological: Denies: headache, weakness Past Medical History Past Medical History: Atrial Fibrillation, GERD/Reflux, Hyperlipidemia, Hypertension Additional Past Medical History / Comment(s): Pacemaker - non functioning, states "battery ran out and Dr mills said I didn't need it and just left it there." History of Any Multi-Drug Resistant Organisms: None Reported Past Surgical History: Cardiac Ablation, Hernia Repair, Orthopedic Surgery, Pacemaker Additional Past Surgical History / Comment(s): Shoulder surgery (does not recall which side), cardiac ablation X2, right knee surgery X2. Past Anesthesia/Blood Transfusion Reactions: No Reported Reaction Type of Cardiac Device: Unknown Device Placement Date:: 1996 Past Psychological History: No Psychological Hx Reported Smoking Status: Never smoker Past Alcohol Use History: Rare Past Drug Use History: None Reported - Past Family History Father Family Medical History: Coronary Artery Disease (CAD), Hypertension Additional Family Medical History / Comment(s): Father is alive at age 90 with previous history of 3 vessel CABG done in his early 60s and valve replacement done at age 82. Mother Family Medical History: Cancer, Diabetes Mellitus Additional Family Medical History / Comment(s): Mother at age 73 from metastatic skin cancer. Brother(s) Additional Family Medical History / Comment(s): Patient has one brother with history of hypertension. Patient has one sister with history of hypertension and diabetes. Patient has 4 children with no major medical problems. General Exam Limitations: no limitations General appearance: alert, in no apparent distress Head exam: Present: atraumatic, normocephalic Eye exam: Present: normal appearance. Absent: scleral icterus, conjunctival injection Neck exam: Present: normal inspection Respiratory exam: Present: normal lung sounds bilaterally. Absent: respiratory distress, wheezes, rales, rhonchi, stridor Cardiovascular Exam: Present: irregular rhythm, normal heart sounds. Absent: systolic murmur, diastolic murmur, rubs, gallop GI/Abdominal exam: Present: soft. Absent: distended, tenderness, guarding, rebound, rigid, mass Extremities exam: Present: normal inspection, normal capillary refill. Absent: pedal edema, calf tenderness Back exam: Present: normal inspection. Absent: CVA tenderness (R), CVA tenderness (L) Neurological exam: Present: alert Skin exam: Present: warm, dry, intact, normal color. Absent: rash Course Vital Signs 10/09/22 10/09/22 10/09/22 15:27 16:51 17:45 Temperature 98.4 F Pulse Rate 145 H 77 95 Respiratory 20 19 19 Rate Blood Pressure 133/83 110/53 131/101 O2 Sat by Pulse 99 97 Oximetry 10/09/22 19:31 Temperature Pulse Rate 98 Respiratory 14 Rate Blood Pressure 128/93 O2 Sat by Pulse 99 Oximetry EKG Findings - EKG Results: EKG: normal axis, normal QRS, normal ST/T - Dysrhythmias: Supraventricular dysrhythmia: atrial flutter (With variable conduction rate 103 bpm) Medical Decision Making - Medical Decision Making This patient is 62-year-old man presenting with what appears to be recurrence of atrial fibrillation and initially a rapid ventricular rate, after having had an ablation performed September 28. The patient's workup here includes chest x-ray which I interpreted as not showing acute infiltrate, pneumothorax, or congestive heart failure. There is a minimal elevation of troponin, believe that this is probably as a result of the recent ablation, and a repeat troponin is obtained to ensure that this is stable which is found to be the case. The case is discussed with Dr. Dominguez covering cardiology, and given that the patient is hemodynamically stable, not in rapid ventricular rate, and is currently on anticoagulant will have him follow with freight clerk in clinic. We discussed appropriate return parameters and follow-up. Was pt. sent in by a medical professional or institution ([facility], [employer], urgent care, hospital, or skilled nursing...) When possible be specific @ -[No] Did you speak to anyone other than the patient for history (EMS, parent, family, police, friend...)? What history was obtained from this source @ -[No] Did you review nursing and triage notes (agree or disagree)? Why? @ -[I reviewed and agree with nursing and triage notes] Were old charts reviewed (outside hosp., previous admission, EMS record, old EKG, old radiological studies, urgent care reports/EKG's, skilled nursing records)? Report findings @ -[old charts were reviewed] Differential Diagnosis (chest pain, altered mental status, abdominal pain women, abdominal pain men, vaginal bleeding, weakness, fever, dyspnea, syncope, heada rika, dizziness, GI bleed, back pain, seizure, CVA, palpatations, mental health, musculoskeletal)? @ -[Differential Palpitations Ventricular arrhythmias, atrial arrhythmias, myocardial infarction, anemia, thyrotoxicosis, electrolyte imbalance, hypokalemia, pulmonary embolism, pul monary disease, drugs, alcohol, anxiety, stress.... This is not meant to be an all-inclusive list. EKG interpreted by me (3pts min.). @ -[As above] X-rays interpreted by me (1pt min.). @ -[None done] CT interpreted by me (1pt min.). @ -[None done] U/S interpreted by me (1pt. min.). @ -[None done] What testing was considered but not performed or refused? (CT, X-rays, U/S, labs)? Why? @ -[None] What meds were considered but not given or refused? Why? @ -[None] Did you discuss the management of the patient with other professionals (professionals i.e. , PA, [employer], lab, RT, psych nurse, social human services assistants, president of the [place], teacher, public information officer, immigration case worker)? Give summary @ -[Case is discussed with the on-call freight clerk as above Was smoking cessation discussed for >3mins.? @ -[No] Was critical care preformed (if so, how long)? @ -[No] Were there social determinants of health that impacted care today? How? (Homelessness, low income, unemployed, alcoholism, drug addiction, transportation, low edu. Level, literacy, decrease access to med. care, group home, rehab)? @ -[No] Was there de-escalation of care discussed even if they declined (Discuss DNR or withdrawal of care, Hospice)? DNR status @ -[No] What co-morbidities impacted this encounter? (DM, HTN, Smoking, COPD, CAD, Cancer, CVA, ARF, Chemo, Hep., AIDS, mental health diagnosis, sleep apnea, morbid obesity)? @ -[None] Was patient admitted / discharged? Hospital course, mention meds given and route, prescriptions, significant lab abnormalities, going to OR and other per tinent info. @ -[Discharged, as above Undiagnosed new problem with uncertain prognosis? @ -[No] Drug Therapy requiring intensive monitoring for toxicity (Heparin, Nitro, Insulin, Cardizem)? @ -[No] Were any procedures done? @ -[No] Diagnosis/symptom? @ -[Recurrent atrial fibrillation Acute, or Chronic, or Acute on Chronic? @ -[Acute on chronic Uncomplicated (without systemic symptoms) or Complicated (systemic symptoms)? @ -[Uncomplicated Side effects of treatment? @ -[No] Exacerbation, Progression, or Severe Exacerbation? @ -[No] Poses a threat to life or bodily function? How? (Chest pain, [place], [place], pneumonia, PE, COPD, DKA, ARF, appy, cholecystitis, CVA, Diverticulitis, Homicidal, Suicidal, threat to staff... and all critical care pts) @ -[No] - Lab Data Result diagrams: 10/09/22 16:05 10/09/22 16:05 Lab Results 10/09/22 10/09/22 10/09/22 Range/Units 16: 16: 16:05 WBC 5.8 (3.8-10.6) k/uL RBC 5.17 (4.30-5.90) m/uL Hgb 16.8 (13.0-17.5) gm/dL Hct 48.6 (39.0-53.0) % MCV 94.1 (80.0-100.0) fL MCH 32.5 (25.0-35.0) pg MCHC 34.5 (31.0-37.0) g/dL RDW 12.3 (11.5-15.5) % Plt Count 226 (150-450) k/uL MPV 6.7 Neutrophils % 57 % Lymphocytes % 28 % Monocytes % 9 % Eosinophils % 3 % Basophils % 0 % Neutrophils # 3.3 (1.3-7.7) k/uL Lymphocytes # 1.6 (1.0-4.8) k/uL Monocytes # 0.5 (0-1.0) k/uL Eosinophils # 0.2 (0-0.7) k/uL Basophils # 0.0 (0-0.2) k/uL PT 10.7 (9.0-12.0) sec INR 1.0 (<1.2) APTT 24.4 (22.0-30.0) sec Sodium 138 (137-145) mmol/L Potassium 4.5 (3.5-5.1) mmol/L Chloride 105 (98-107) mmol/L Carbon Dioxide 26 (22-30) mmol/L Anion Gap 7 mmol/L BUN 19 (9-20) mg/dL Creatinine 0.90 (0.66-1.25) mg/dL Est GFR (CKD-EPI)AfAm >90 (>60 ml/min/1.73 sqM) Est GFR (CKD-EPI)NonAf 90 (>60 ml/min/1.73 sqM) Glucose 93 (74-99) mg/dL Calcium 8.9 (8.4-10.2) mg/dL Magnesium 2.2 (1.6-2.3) mg/dL Total Bilirubin 0.9 (0.2-1.3) mg/dL AST 36 (17-59) U/L ALT 42 (4-49) U/L Alkaline Phosphatase 82 (38-126) U/L Troponin I (0.000-0.034) ng/mL Total Protein 7.8 (6.3-8.2) g/dL Albumin 4.5 (3.5-5.0) g/dL TSH 3.740 (0.465-4.680) mIU/L 10/09/22 10/09/22 Range/Units 16:05 20:06 WBC (3.8-10.6) k/uL RBC (4.30-5.90) m/uL Hgb (13.0-17.5) gm/dL Hct (39.0-53.0) % MCV (80.0-100.0) fL MCH (25.0-35.0) pg MCHC (31.0-37.0) g/dL RDW (11.5-15.5) % Plt Count (150-450) k/uL MPV Neutrophils % % Lymphocytes % % Monocytes % % Eosinophils % % Basophils % % Neutrophils # (1.3-7.7) k/uL Lymphocytes # (1.0-4.8) k/uL Monocytes # (0-1.0) k/uL Eosinophils # (0-0.7) k/uL Basophils # (0-0.2) k/uL PT (9.0-12.0) sec INR (<1.2) APTT (22.0-30.0) sec Sodium (137-145) mmol/L Potassium (3.5-5.1) mmol/L Chloride (98-107) mmol/L Carbon Dioxide (22-30) mmol/L Anion Gap mmol/L BUN (9-20) mg/dL Creatinine (0.66-1.25) mg/dL Est GFR (CKD-EPI)AfAm (>60 ml/min/1.73 sqM) Est GFR (CKD-EPI)NonAf (>60 ml/min/1.73 sqM) Glucose (74-99) mg/dL Calcium (8.4-10.2) mg/dL Magnesium (1.6-2.3) mg/dL Total Bilirubin (0.2-1.3) mg/dL AST (17-59) U/L ALT (4-49) U/L Alkaline Phosphatase (38-126) U/L Troponin I 0.086 H* 0.082 H* (0.000-0.034) ng/mL Total Protein (6.3-8.2) g/dL Albumin (3.5-5.0) g/dL TSH (0.465-4.680) mIU/L Critical Care Time Critical Care Time: Yes (30 minutes) Disposition Clinical Impression: Atrial fibrillation Disposition: HOME SELF-CARE Condition: Good Instructions (If sedation given, give patient instructions): A-fib (Atrial Fibrillation) (ED) Is patient prescribed a controlled substance at d/c from ED?: No Referrals: Jerzy Mars MD [Primary Care Provider] - 1-2 days Jatinder Mills MD [STAFF PHYSICIAN] - 1-2 days
[2022-10-09 16:13] LABS: Basophils % (A) 0 %; Eosinophils # (A) 0.2 k/uL (0-0.7); Eosinophils % (A) 3 %; HCT 48.6 % (39.0-53.0); HGB 16.8 gm/dL (13.0-17.5); Lymphocytes # (A) 1.6 k/uL (1.0-4.8); Lymphocytes % (A) 28 %; MCH 32.5 pg (25.0-35.0); MCHC 34.5 g/dL (31.0-37.0); MCV 94.1 fL (80.0-100.0); Mean Platelet Volume 6.7; Monocytes # (A) 0.5 k/uL (0-1.0); Monocytes % (A) 9 %; Neutrophils # (A) 3.3 k/uL (1.3-7.7); Neutrophils % (A) 57 %; Platelet Count 226 k/uL (150-450); RBC 5.17 m/uL (4.30-5.90); RDW 12.3 % (11.5-15.5); WBC 5.8 k/uL (3.8-10.6)
[2022-10-09 16:24] LABS: Partial Thromboplastin Time 24.4 sec (22.0-30.0); Prothrombin Time 10.7 sec (9.0-12.0)
[2022-10-09 16:28] LABS: ALT 42 U/L (4-49); AST 36 U/L (17-59); African American GFR (CKD) >90 (>60 ml/min/1.73 sqM); Albumin 4.5 g/dL (3.5-5.0); Alkaline Phosphatase 82 U/L (38-126); Anion Gap 7 mmol/L; Blood Urea Nitrogen 19 mg/dL (9-20); Calcium 8.9 mg/dL (8.4-10.2); Carbon Dioxide 26 mmol/L (22-30); Chloride 105 mmol/L (98-107); Glucose 93 mg/dL (74-99); Magnesium 2.2 mg/dL (1.6-2.3); Non-African American GFR(CKD) 90 (>60 ml/min/1.73 sqM); Potassium 4.5 mmol/L (3.5-5.1); Sodium 138 mmol/L (137-145); Total Bilirubin 0.9 mg/dL (0.2-1.3); Total Protein 7.8 g/dL (6.3-8.2)
--- NOTE | 2022-10-09 16:33 | XR ---
EXAMINATION TYPE: XR chest 1V portable DATE OF EXAM: 10/09/2022 HISTORY: Shortness of breath. COMPARISON: 10/03/22 TECHNIQUE: Single view of the chest is submitted. FINDINGS: Demonstrated are scattered senescent parenchymal change. There is no evidence for focal infiltrate. The heart is stable. Hilar and mediastinal structures are within normal limits. Degenerative changes are seen of the dorsal spine. IMPRESSION: 1. Chronic changes without evidence for acute pulmonary disease.
[2022-10-09] MEDS ORDERED: METOPROLOL TARTRATE 5 MG/5 ML VIAL IVP STA (17:16)
[2022-10-09 19:34] VITALS: BP 128/93; PULSE 98; RESP 14
[2022-10-09] MEDS ORDERED: ACETAMINOPHEN TAB 325 MG TAB PO STA (19:38)
== END 2022-10-09 22:05 | disposition home or self-care (01) ==
LOC: EC 15:21
DX: I48.91 Unspecified atrial fibrillation (principal); I10 Essential (primary) hypertension; E78.5 Hyperlipidemia, unspecified; K21.9 Gastro-esophageal reflux disease without esophagitis; Z79.899 Other long term (current) drug therapy; Z95.0 Presence of cardiac pacemaker
CPT/HCPCS: 36415; 71045; 80053; 83735; 84443; 84484; 85025; 85610; 85730; 93005; 96374; 99291